=== PATIENT | male | born 1955 | race Two or more races ===

== ENCOUNTER 2020-03-10 09:59 | Outpatient (CLI) | payer MEDICARE, MEDICAID ==
[~2020-03-10 09:59] MED LIST: *INS REG SQ; ALBU18HF2 IH; ALLO100T PO; AMLO-212 PO; AMLO-213 PO; ASPI-1169 PO; ATOR40TA PO; BLOO-668 IN; BUME1TAB8 PO; CARV12.52 PO; CHOL10002 PO; CHOL100040 PO; CIPR500T5 PO; CLOP75TA15 PO; FENO145T21 PO; FERR325T24 PO; FOLI0.8T2 PO; FOLI1TAB16 PO; FURO40TA5 PO; HYDR-4075 PO; HYDR100T27 PO; INSU100V7 SQ; INSU100V9 SQ; INSU3INS6 SQ; ISOS30TA6 PO; LEVO50TA8 PO; LEVO75TA7 PO; METF-440 PO; METF-442 PO; METO2.5T7 PO; METO25TA20 PO; METO50TA16 PO; NITR0.4T48 SL; PANT40TA2 PO; RANO500T3 PO; SIMV-49 PO; SIMV40TA2 PO; SPIR25TA PO; TRAZ-257 PO
[2020-03-10] MEDS ORDERED: REGADENOSON 0.4 MG/5 ML DISP.SYRIN IVP ONE (10:30)
== END 2020-03-10 23:59 | disposition home or self-care (01) ==
LOC: RAD 09:59
PROVIDERS: ATTEND Internal Medicine Interventional Cardiology
DX: R07.9 Chest pain, unspecified (principal)
CPT/HCPCS: 78452; A9502; J2785

== ENCOUNTER 2020-03-27 05:06 | Inpatient (IN) | payer MEDICARE, OTHER ==
[~2020-03-27] VITALS: Ht 172.7 cm; Wt 105.7 kg
--- NOTE | 2020-03-27 05:11 | NUR ---
PT AAOX4. AMBULATORY USING WALKER. BIB BROTHER C/O RLQ ABD PAIN X1 DAY, BLOODY URINE. MISSED DIALYSIS YESTERDAY. PT STATED HE DRANK LAST NIGHT TO EASE THE PAIN. PT PLACED ON MONITOR AND PULSE OX. VSS. AWAITING MD FOR EVAL AND ORDERS.
--- NOTE | 2020-03-27 05:44 | NUR ---
BLOOD COLLECTED AND SENT TO LAB.
[2020-03-27 05:48] LABS: BILIRUBIN,URINE Negative (NEGATIVE); BLOOD, URINE Trace-intact Ery/uL (NEGATIVE); COLOR,URINE YELLOW (YELLOW); LEUKOCYTE ESTERASE ,URINE Negative (NEGATIVE); NITRITE, URINE Negative (NEGATIVE); PROTEIN,URINE Negative (NEGATIVE); UGLUCOSE Negative (NEGATIVE); UROBILINOGEN,URINE 0.2 EU/dL (0.2)
[2020-03-27 05:51] LABS: BASOPHILS # (AUTO) 0.1 /CMM (0.0-0.2); BASOPHILS % (AUTO) 0.9 % (0.0-2.0); EOSINOPHILS % (AUTO) 4.3 % (0.0-6.0); HEMATOCRIT 37 % (39-51); HEMOGLOBIN 12.4 g/dL (13.5-17.5); LYMPHOCYTES # (AUTO) 1.3 /CMM (0.8-4.8); MEAN CORPUSCULAR HGB CONC 34 g/dl (31.0-36.0); MEAN CORPUSCULAR VOLUME 95 fL (80-96); MONOCYTES # (AUTO) 0.3 /CMM (0.1-1.30); MONOCYTES % (AUTO) 4.7 % (2.0-12.0); NEUTROPHILS # (AUTO) 4.7 /CMM (1.8-8.9); NEUTROPHILS % (AUTO) 70.1 % (43.0-81.0); PLATELET COUNT (AUTO) 248 /CMM (150-450); RED BLOOD CELL COUNT(AUTO) 3.82 MIL/uL (4.5-6.0); WHITE BLOOD COUNT (AUTO) 6.7 K/uL (4.3-11.0)
[2020-03-27 05:56] LABS: CALCIUM, SERUM 8.5 mg/dL (8.5-10.1); CREATININE 3.5 mg/dL (0.6-1.3); POTASSIUM 4.8 mmol/L (3.5-5.1)
[2020-03-27 06:02] LABS: ALBUMIN 3.6 g/dL (3.4-5.0); BILIRUBIN,DIRECT 0.1 mg/dL (0.0-0.2); BILIRUBIN,TOTAL 0.3 mg/dL (0.2-1.0); TOTAL PROTEIN, SERUM 7.5 g/dL (6.4-8.2)
--- NOTE | 2020-03-27 06:15 | NUR ---
CALLED LAB REGARDING COVID SWAB.
--- NOTE | 2020-03-27 06:35 | NUR ---
covid swab collected and sent to the lab.
[2020-03-27 06:49] LABS: BACTERIA,URINE None seen /HPF (None Seen); CALCIUM OXALATE CRYSTALS,UR Moderate /HPF (None Seen); RBC,URINE 0-2 /HPF (0-2); SQUAMOUS EPITHELIAL CELL,UR Few /HPF (None Seen); WBC,URINE 0-2 /HPF (0-3)
[2020-03-27] MEDS ORDERED: ONDANSETRON HCL/PF 4 MG/2 ML VIAL IVP ONE (07:00)
[2020-03-27] MEDS ORDERED: MORPHINE SULFATE INJ 2 MG/ML DISP.SYRIN IV ONE (07:00)
--- NOTE | 2020-03-27 07:06 | NUR ---
PT AMBULATED TO THE RESTROOM USING WALKER.
[2020-03-27] MEDS ORDERED: ONDANSETRON HCL/PF 4 MG/2 ML VIAL ONE (07:16)
[2020-03-27] MEDS ORDERED: MORPHINE SULFATE INJ 4 MG/ML DISP.SYRIN ONE (07:17)
--- NOTE | 2020-03-27 07:43 | NUR ---
PAGED EPIC. DR. SOLER ENVIRONMENTAL TECH.
[2020-03-27 08:19] LABS: THYROID STIMULATING HORMONE 1.475 uIU/mL (0.358-3.74)
[2020-03-27] MEDS ORDERED: METO25TA6 PO (08:21)
[2020-03-27] MEDS ORDERED: METF-440 PO (08:21)
[2020-03-27] MEDS ORDERED: HYDR-4077 PO (08:21)
--- NOTE | 2020-03-27 11:17 | NUR ---
received bed assigment 324-1
--- NOTE | 2020-03-27 11:40 | NUR ---
report given to mansi salter rn at [facility]
[2020-03-27 11:53] LABS: MAGNESIUM 2.9 mg/dL (1.8-2.4)
[2020-03-27] MEDS ORDERED: DIATR MEGLU/DIATRIZOATE SODIUM 120 ML BOTTLE (GASTROGRAPHIN) ONE (11:57)
[2020-03-27 12:00] VITALS: BP 124/66
[2020-03-27] MEDS ORDERED: NITROGLYCERIN 0.4 MG/TAB BOTTLE SL PRN (12:00)
[2020-03-27] MEDS ORDERED: ALBUTEROL SULFATE INH 18 GM HFA.AER.AD IH PRN (12:00)
[2020-03-27] MEDS ORDERED: IV D5/ 0.9% NACL 1,000 ML IV PRN (12:00)
[2020-03-27] MEDS ORDERED: FUROSEMIDE 40 MG TABLET PO SCH (12:00)
--- NOTE | 2020-03-27 12:00 | NUR ---
RN NOTES PT AAOX4. AMBULATORY. NO SOB NO SIGNS OF PAIN OR DISCOMFORT VISIBLE OR REPORTED. PT ON ROOM AIR. CURRENTLY NPO EXPECT FOR MEDICATIONS, HAS IV IN THE RIGHT HAND. HAS AN AV SHUNT. CALL LIGHT WITHIN REACH. BED IN A LOCKED POSITION. ALL NEEDS MET.WILL CONTINUE TO MONITOR
--- NOTE | 2020-03-27 12:01 | NUR ---
pt transferred to [facility]
[2020-03-27] MEDS ORDERED: ALBUTEROL FS 2.5 MG/0.5 ML VIAL.NEB NEB PRN (12:30)
[2020-03-27] MEDS ORDERED: METFORMIN 500 MG TABLET PO SCH (13:00)
[2020-03-27] MEDS: hydrALAZINE HCL 50 MG TABLET PO SCH ×2 (13:00→17:30)
--- NOTE | 2020-03-27 13:00 | NUR ---
FOLDED CLOTH TAPERAEROBICS TEACHER NOTES ADMITTED PT FROM ER WITH C/O ABDOMINAL PAIN.PT ALERT AND ORIENTED X4.VERBALLY RESPONSIVE. NO SOB ON ROOM AIR.AMBULATES AD PRINCE.SKIN INTACT. WITH HERB AV SHUNT AND RT HAND HEPLOCK INTACT. MISSED HD YESTERDAY AND WILL HAVE HEMODIALYSIS TODAY.ON NPO EXCEPT MEDS.CALL LIGHT PLACEDWITHIN REACH.
--- NOTE | 2020-03-27 13:00 | NUR ---
RN NOTES HYDRALAZINE HELD PATIENT WILL HAVE DIALYSIS
[2020-03-27] MEDS ORDERED: LOPERAMIDE HCL (2 MG CAP) 2 MG CAPSULE PO PRN (15:00)
[2020-03-27] MEDS ORDERED: DEXTROSE 50%-WATER 50 ML DISP.SYRIN IV PRN (15:30)
[2020-03-27 16:00] VITALS: BP 119/56
--- NOTE | 2020-03-27 16:00 | NUR ---
VTE [address] YOVANNY GAO OF PT'S VTE SCORE OF 3 AND PLAVIX IS NOT CONSIDERED CHEMICAL PROPHYLAXIS. NNO AT THIS TIME
[2020-03-27] MEDS ORDERED: METOPROLOL TARTRATE 25 MG TABLET PO SCH (17:00)
[2020-03-27] MEDS ORDERED: INSULIN REGULAR, HUMAN 100 UNIT/ML 10 ML VIAL SQ SCH (17:00)
[2020-03-27] MEDS: CARVEDILOL 12.5 MG TABLET PO SCH (17:30)
[2020-03-27] MEDS: BLOOD SUGAR DIAGNOSTIC 1 EACH STRIP IN SCH ×2 (17:41→22:14)
[2020-03-27] MEDS: ATORVASTATIN 40 MG TABLET PO SCH (17:45)
[2020-03-27] MEDS: LOPERAMIDE HCL (2 MG CAP) 2 MG CAPSULE PO PRN (17:55)
--- NOTE | 2020-03-27 18:26 | NUR ---
RN NOTES PT AAOX4. AMBULATORY. NO SOB NO SIGNS OF PAIN OR DISCOMFORT VISIBLE OR REPORTED. PT ON ROOM AIR. CURRENTLY NPO EXCEPT FOR MEDICATIONS, HAS IV ON THE RIGHT HAND NO REDNESS WELLING OR PAIN AT SITE. CALL LIGHT WITHIN REACH. BED IN A LOCKED POSITION. ALL NEEDS MET.WILL CONTINUE TO MONITOR
--- NOTE | 2020-03-27 19:00 | NUR ---
weather algorithm scientist opening notes Received Pt from morning nurse. Pt is resting in bed comfortably. Pt is alert and orientedX4. Pt speaks [place] and able to make needs known. Respiration is normal in room air. No SOB. No S/S of distress noted. Tele monitor showed SR Hr at 68. IV sites at R hand is clean, intact and infusing well D5NS@ 50 ml/hr. Safety precautions is maintained. Bed at low position, brakes locked, side railsupX3, urinal at the bed side, and call light is within reach. Will continue to monitor.
--- NOTE | 2020-03-27 19:10 | NUR ---
RN notes Pt started dialysis with AURELIA Stephenson.
[2020-03-27 20:00] VITALS: BP 97/56
--- NOTE | 2020-03-27 21:50 | NUR ---
RN notes Pt is finished dialysis with AURELIA Stephenson. Output 1500 ml. Pt tolerated activity well.
[2020-03-27] MEDS: RANOLAZINE 500 MG TAB.ER.12H PO SCH (22:03)
[2020-03-27] MEDS: INSULIN REGULAR, HUMAN 100 UNIT/ML 3 ML VIAL SQ PRN (22:15)
[2020-03-28] VITALS: BP 96/47
--- NOTE | 2020-03-28 07:00 | NUR ---
criminal justice social worker closing notes Pt is resting in bed comfortably. Pt is alert and orientedX4. Pt speaks Mozambican and able to make needs known. Respiration is normal in room air. No SOB. No S/S of distress noted. VS is stable. Afebrile. Tele monitor showed Sinus carlos at 58. IV sites at R hand is clean, intact and infusing well D5NS@ 50 ml/hr. Safety precautions is maintained. Bed at low position, brakes locked, side railsupX3, urinal at the bed side, and call light is within reach. Will endorse to morning nurse for DENNIS.
[2020-03-28] MEDS: BLOOD SUGAR DIAGNOSTIC 1 EACH STRIP IN SCH ×4 (07:40→22:00)
--- NOTE | 2020-03-28 07:40 | NUR ---
RESTAURANT TEAM MEMBER OPENING NOTES Bedside endorsement done. Patient is resting in bed, awake and verbally responsive. Alert and oriented X4, Kazakh-speaking but understands Serbian. Breathing even and unlabored, tolearting room air. On tele monitoring, reading of SR, hr in the low 60's. IV line on R hand #20 intact and patent, IVF of D5NS @ 50 ml/hr, infusing well. Safety precautions in place: bed locked and on lowest position, side rails up X2, call light is within reach. Will continue to monitor.
[2020-03-28 08:00] VITALS: BP 120/58
[2020-03-28] MEDS: CARVEDILOL 12.5 MG TABLET PO SCH ×2 (09:00→17:12)
[2020-03-28] MEDS: CLOPIDOGREL BISULFATE 75 MG TABLET PO SCH (09:00)
[2020-03-28 11:42] LABS: BASOPHILS # (AUTO) 0.1 /CMM (0.0-0.2); BASOPHILS % (AUTO) 1.1 % (0.0-2.0); HEMATOCRIT 35 % (39-51); HEMOGLOBIN 11.8 g/dL (13.5-17.5); LYMPHOCYTES # (AUTO) 0.9 /CMM (0.8-4.8); LYMPHOCYTES % (AUTO) 14.3 % (20.0-44.0); MEAN CORPUSCULAR HGB CONC 34 g/dl (31.0-36.0); MEAN CORPUSCULAR VOLUME 95 fL (80-96); MONOCYTES # (AUTO) 0.4 /CMM (0.1-1.30); MONOCYTES % (AUTO) 6.2 % (2.0-12.0); NEUTROPHILS # (AUTO) 4.7 /CMM (1.8-8.9); NEUTROPHILS % (AUTO) 74.4 % (43.0-81.0); PLATELET COUNT (AUTO) 243 /CMM (150-450); WHITE BLOOD COUNT (AUTO) 6.3 K/uL (4.3-11.0)
[2020-03-28 12:34] LABS: CALCIUM, SERUM 7.9 mg/dL (8.5-10.1); CREATININE 4.2 mg/dL (0.6-1.3); MAGNESIUM 2.9 mg/dL (1.8-2.4); PHOSPHORUS 5.3 mg/dL (2.5-4.9); POTASSIUM 4.7 mmol/L (3.5-5.1)
[2020-03-28] MEDS: RANOLAZINE 500 MG TAB.ER.12H PO SCH ×2 (12:40→21:01)
[2020-03-28] MEDS: FENOFIBRATE NANOCRYS (145 MG) 145 MG TABLET PO SCH (12:40)
[2020-03-28] MEDS: ASPIRIN 81 MG TAB.CHEW PO SCH (12:40)
[2020-03-28] MEDS: CHOLECALCIFEROL 1,000 UNIT TABLET (VIT D3) PO SCH (12:40)
[2020-03-28] MEDS: FERROUS SULFATE (325 MG) 325 MG/TAB TABLET PO SCH (12:40)
[2020-03-28] MEDS: AMLODIPINE BESYLATE 10 MG TABLET PO SCH (12:41)
[2020-03-28] MEDS: SPIRONOLACTONE 25 MG TABLET PO SCH (12:41)
[2020-03-28] MEDS: LEVOTHYROXINE SODIUM 75 MCG TABLET PO SCH (12:41)
[2020-03-28] MEDS: PANTOPRAZOLE 40 MG TABLET.DR PO SCH (12:41)
[2020-03-28] MEDS: ALLOPURINOL 100 MG TABLET PO SCH (12:42)
[2020-03-28] MEDS: hydrALAZINE HCL 50 MG TABLET PO SCH ×3 (12:42→17:12)
[2020-03-28] MEDS: ISOSORBIDE MONONITRATE (30MG) 30 MG TAB.SR.24H PO SCH (12:43)
--- NOTE | 2020-03-28 13:00 | NUR ---
RN NOTES RECEIVED NEW ORDER FROM DR. PERALES TO START PATIENT ON CLEAR LIQUID AND ADVANCE TOLERATED. PATIENT GIVEN APPLE JUICE, WATER, AND JELLO, ABLE TO TOLERATE W/O COMPLAINT OF NAUSEA NOR VOMITING. WILL ADVANCE PATIENT TOLERATES.
[2020-03-28] MEDS: INSULIN REGULAR, HUMAN 100 UNIT/ML 3 ML VIAL SQ PRN ×2 (13:08→17:29)
[2020-03-28 16:00] VITALS: BP 118/43
--- NOTE | 2020-03-28 17:41 | NUR ---
RN NOTES PATIENT CURRENTLY ABLE TO TOLERATE SALTINE CRACKERS AT THIS TIME W/O COMPLAINT OF NAUSEA/VOMITING. NO SWALLOWING ISSUES NOTED. NO COMPLAINT OF ABDOMINAL PAIN.
[2020-03-28] MEDS: ATORVASTATIN 40 MG TABLET PO SCH (17:55)
--- NOTE | 2020-03-28 19:30 | NUR ---
BRIM STRETCHER CLOSING NOTES Patient is awake and verbally responsive. Alert and oriented X4, Syrian-speaking but understands Moldovan. Breathing even and unlabored, tolearting room air. On tele monitoring, reading of SR, hr in the 60's. IV line on R hand #20 intact and patent; patient does not want the ivf for now as he says he is okay with drinking fluids. Tolerating current diet and advancing as patient is able, no c/o nausea nor vomiting. Safety precautions maintained: bed locked and on lowest position, side rails up X2, call light is within reach. Endorsed to skin piler rn for kale.
[2020-03-28 20:00] VITALS: BP 149/73
[2020-03-28] MEDS: LOPERAMIDE HCL (2 MG CAP) 2 MG CAPSULE PO PRN (21:01)
--- NOTE | 2020-03-28 23:13 | NUR ---
BLOOD SUGAR [id number], NO INSULIN GIVEN.
[2020-03-29] MEDS: INSULIN REGULAR, HUMAN 100 UNIT/ML 3 ML VIAL SQ PRN (06:29)
[2020-03-29] MEDS: BLOOD SUGAR DIAGNOSTIC 1 EACH STRIP IN SCH ×2 (06:31→12:00)
--- NOTE | 2020-03-29 07:56 | NUR ---
RN OPENING NOTE Patient is resting in bed, A/O x4, showing no signs of acute distress or SOB, stable on RA. Patient is ambulatory with BRP. IV line in the the right hand #20g is clean and intact flushing well. Bed is in lowest position, side rails x2 in upright position, call light is within reach, fall safety and aspiration precautions enforced. Will continue with plan of care.
[2020-03-29 08:00] VITALS: BP 127/57
[2020-03-29] MEDS: ASPIRIN 81 MG TAB.CHEW PO SCH (08:49)
[2020-03-29] MEDS: AMLODIPINE BESYLATE 10 MG TABLET PO SCH (08:49)
[2020-03-29 08:50] VITALS: BP 127/57
[2020-03-29] MEDS: LEVOTHYROXINE SODIUM 75 MCG TABLET PO SCH (08:50)
[2020-03-29] MEDS: CARVEDILOL 12.5 MG TABLET PO SCH (08:50)
[2020-03-29] MEDS: RANOLAZINE 500 MG TAB.ER.12H PO SCH (08:50)
[2020-03-29] MEDS: FENOFIBRATE NANOCRYS (145 MG) 145 MG TABLET PO SCH (08:50)
[2020-03-29] MEDS: FERROUS SULFATE (325 MG) 325 MG/TAB TABLET PO SCH (08:50)
[2020-03-29] MEDS: ISOSORBIDE MONONITRATE (30MG) 30 MG TAB.SR.24H PO SCH (08:50)
[2020-03-29] MEDS: hydrALAZINE HCL 50 MG TABLET PO SCH (08:50)
[2020-03-29] MEDS: CHOLECALCIFEROL 1,000 UNIT TABLET (VIT D3) PO SCH (08:50)
[2020-03-29] MEDS: PANTOPRAZOLE 40 MG TABLET.DR PO SCH (08:55)
[2020-03-29] MEDS: ALLOPURINOL 100 MG TABLET PO SCH (08:55)
[2020-03-29] MEDS: CLOPIDOGREL BISULFATE 75 MG TABLET PO SCH (08:55)
[2020-03-29] MEDS: SPIRONOLACTONE 25 MG TABLET PO SCH (08:56)
[2020-03-29] MEDS ORDERED: APIXABAN 2.5 MG TABLET PO SCH (09:00)
--- NOTE | 2020-03-29 13:19 | NUR ---
TEST CARRIER NOTE Patient is medically cleared for discharge, showing no signs of acute distress or SOB, stable on RA. Patient refused skin assessment. IV line removed, ID band removed. DC instructions provided, patient verbalized understanding. All patient needs met, all due medications given. All belongings are with patient. Patent picked up by brother in private car en route to home. aware. stove tender aware.
== END 2020-03-29 14:00 | disposition home or self-care (01) | DRG 393 ==
LOC: ER 05:07 → TELE 11:27 → MED 03-28 11:19
PROVIDERS: ADMIT Internal Medicine Nephrology; ATTEND Internal Medicine Nephrology
PROC: 5A1D70Z Performance of Urinary Filtration, Intermittent, Less than 6 Hours Per Day (ICD-10-PCS; principal; 2020-03-27)
DX: K43.6 Other and unspecified ventral hernia with obstruction, without gangrene (principal); N18.6 End stage renal disease; I21.A1 Myocardial infarction type 2; I13.2 Hypertensive heart and chronic kidney disease with heart failure and with stage 5 chronic kidney disease, or end stage renal disease; I48.92 Unspecified atrial flutter; J90 Pleural effusion, not elsewhere classified; E66.01 Morbid (severe) obesity due to excess calories; E11.22 Type 2 diabetes mellitus with diabetic chronic kidney disease; I25.10 Atherosclerotic heart disease of native coronary artery without angina pectoris; I27.20 Pulmonary hypertension, unspecified; Z79.82 Long term (current) use of aspirin; F10.20 Alcohol dependence, uncomplicated; Z79.84 Long term (current) use of oral hypoglycemic drugs; Z68.35 Body mass index [BMI] 35.0-35.9, adult; I50.9 Heart failure, unspecified; Z79.4 Long term (current) use of insulin
CPT/HCPCS: 36415; 71045-TC; 74250-TC; 80048-TC; 80076-TC; 81001; 82140-TC; 82728-TC; 82962-TC; 83540-TC; 83690-TC; 83735-TC; 84100-TC; 84439-TC; 84443-TC; 84484-TC; 85025-TC; 85730-TC; 86706; 87081-TC; 87340; 90935-TC; 93307-TC; C9803; G0378; J1815; J2270; J2405; Q9963

== ENCOUNTER 2021-08-04 13:26 | Inpatient (IN) | payer MEDICARE, OTHER ==
[~2021-08-04] VITALS: Ht 170.2 cm; Wt 103.4 kg
[~2021-08-04 13:26] MED LIST changes: -*INS REG SQ; -AMLO-212 PO; -BLOO-668 IN; -BUME1TAB8 PO; -CHOL100040 PO; -CIPR500T5 PO; -FOLI0.8T2 PO; -FOLI1TAB16 PO; -HYDR-4075 PO; +HYDR-4077 PO; -HYDR100T27 PO; -INSU3INS6 SQ; -ISOS30TA6 PO; +ISOS30TA86 PO; -LEVO50TA8 PO; -METF-442 PO; -METO2.5T7 PO; -METO25TA20 PO; +METO25TA6 PO; -METO50TA16 PO; -SIMV-49 PO; -SIMV40TA2 PO
[2021-08-04] MEDS ORDERED: MIDODRINE HCL (5MG) 5 MG TABLET PO STA (13:42)
--- NOTE | 2021-08-04 13:42 | NUR ---
c/o dizziness, missed 2 dialysis. Ambulatory, AAOX4, not in distress- unlabored normal breathing. Placed on bed comfortably.
--- NOTE | 2021-08-04 13:45 | NUR ---
at bed side
--- NOTE | 2021-08-04 13:50 | NUR ---
BLOOD DRAWN AND SENT TO LAB
[2021-08-04] MEDS ORDERED: FUROSEMIDE 40 MG/4 ML VIAL IV ONE (14:00)
[2021-08-04] MEDS ORDERED: CALCIUM CHLORIDE 1,000 MG/10 ML DISP.SYRIN IV ONE (14:00)
[2021-08-04] MEDS ORDERED: SODIUM BICARBONATE SYR 50 MEQ/50 ML DISP.SYRIN IV ONE (14:00)
[2021-08-04 14:04] LABS: BASOPHILS # (AUTO) 0.1 K/uL (0.0-0.2); BASOPHILS % (AUTO) 0.9 % (0.0-2.0); EOSINOPHILS % (AUTO) 1.6 % (0.0-6.0); HEMATOCRIT 33 % (39-51); HEMOGLOBIN 10.9 g/dL (13.5-17.5); LYMPHOCYTES # (AUTO) 0.6 K/uL (0.8-4.8); LYMPHOCYTES % (AUTO) 8.6 % (20.0-44.0); MEAN CORPUSCULAR HGB CONC 33 g/dl (31.0-36.0); MEAN CORPUSCULAR VOLUME 96 fL (80-96); MONOCYTES # (AUTO) 0.4 K/uL (0.1-1.30); MONOCYTES % (AUTO) 5.4 % (2.0-12.0); NEUTROPHILS # (AUTO) 5.6 K/uL (1.8-8.9); NEUTROPHILS % (AUTO) 83.5 % (43.0-81.0); PLATELET COUNT (AUTO) 258 K/uL (150-450); RED BLOOD CELL COUNT(AUTO) 3.39 MIL/uL (4.5-6.0); WHITE BLOOD COUNT (AUTO) 6.7 K/uL (4.3-11.0)
[2021-08-04] MEDS ORDERED: FUROSEMIDE 20 MG/2 ML VIAL ONE (14:06)
[2021-08-04] MEDS ORDERED: MIDODRINE HCL (5MG) 5 MG TABLET ONE ×2 (14:07→14:08)
[2021-08-04] MEDS ORDERED: SODIUM BICARBONATE SYR 50 MEQ/50 ML DISP.SYRIN ONE (14:07)
[2021-08-04] MEDS ORDERED: CALCIUM CHLORIDE 1,000 MG/10 ML DISP.SYRIN ONE (14:07)
[2021-08-04 14:25] LABS: CALCIUM, SERUM 8.4 mg/dL (8.5-10.1); CREATININE 5.2 mg/dL (0.6-1.3); POTASSIUM 4.9 mmol/L (3.5-5.1)
[2021-08-04 14:31] LABS: ALBUMIN 3.7 g/dL (3.4-5.0); BILIRUBIN,DIRECT 0.1 mg/dL (0.0-0.2); BILIRUBIN,TOTAL 0.4 mg/dL (0.2-1.0); TOTAL PROTEIN, SERUM 7.5 g/dL (6.4-8.2)
--- NOTE | 2021-08-04 14:35 | NUR ---
MOVE SHEET SUBMITTED AND CALLED FOR TELE BED.
[2021-08-04] MEDS ORDERED: CALC667C6 PO (14:39)
[2021-08-04] MEDS ORDERED: SPIR100T5 PO (14:39)
[2021-08-04] MEDS ORDERED: ICOS1CAP PO (14:39)
[2021-08-04] MEDS ORDERED: NUT.237L67 PO (14:39)
[2021-08-04] MEDS ORDERED: APIX2.5T PO (14:39)
[2021-08-04] MEDS ORDERED: MULT-981 PO (14:39)
[2021-08-04] MEDS ORDERED: ATOR40TA PO (14:56)
[2021-08-04] MEDS ORDERED: ASPI-1169 PO (14:56)
[2021-08-04] MEDS ORDERED: FURO40TA5 PO (14:56)
[2021-08-04] MEDS ORDERED: INSU100V9 SQ (14:56)
[2021-08-04] MEDS ORDERED: CARV12.52 PO (14:56)
[2021-08-04] MEDS ORDERED: FENO145T21 PO (14:56)
--- NOTE | 2021-08-04 14:58 | NUR ---
SWAB FOR COVID SENT TO LAB
[2021-08-04] MEDS ORDERED: MAGN400T26 PO (14:59)
[2021-08-04] MEDS ORDERED: CALC500T52 PO (14:59)
[2021-08-04] MEDS ORDERED: ZINC50TA69 PO (14:59)
--- NOTE | 2021-08-04 15:20 | NUR ---
IMFORMED DR HORTON THAT PATIENT CAN NOT PRODUCE URINE SAMPLE
--- NOTE | 2021-08-04 15:57 | NUR ---
BED ASSIGNED 315-1
[2021-08-04 16:10] LABS: BILIRUBIN,URINE NEGATIVE (NEGATIVE); COLOR,URINE YELLOW (YELLOW); LEUKOCYTE ESTERASE ,URINE NEGATIVE (NEGATIVE); NITRITE, URINE NEGATIVE (NEGATIVE); PH,URINE 7.5 (5.0-8.0); PROTEIN,URINE NEGATIVE (NEGATIVE); UGLUCOSE NEGATIVE (NEGATIVE); UROBILINOGEN,URINE 0.2 EU/dL (0.2)
--- NOTE | 2021-08-04 16:30 | NUR ---
REPORT GIVEN TO AURELIA MORRISSEY
--- NOTE | 2021-08-04 16:35 | NUR ---
Patient arrived to unit via gurney at 1630pm from ER, stable condition. Patient AO X 4, able to make needs known, can follow simple commands, no apparent distress noted, breathing even and unlabored. Admitting hospitalist made aware of the patient's arrival. Patient admitting diagnosis dizziness, fluid overload. Patient's vital signs within normal limits, no complaints of facial numbness or weakness, no extremity numbness or weakness at this time. Skin intact, warm to touch, no pallor or cyanosis noted. Patient oriented with use of call lights, use of bed control, use of telephone and tv control, also introduces NIGHT MONITOR and RN assigned for today, verbalized understanding and gratitude. All belongings written in the inventory list. All needs attended, kept clean and dry, call light left within reach, safety precautions in place, brakes locked, side rails up X 2, will monitor closely for any changes.
--- NOTE | 2021-08-04 16:45 | NUR ---
[facility] CALLED APPLE THINNER PAGED.
[2021-08-04 17:00] VITALS: BP 155/73
--- NOTE | 2021-08-04 17:55 | NUR ---
RN CLOSING NOTES Patient lying in bed, no shortness of breath, respirations even and unlabored, no apparent distress noted, no dizziness, no palpitations, no chest pain, no nausea, no vomiting. Patient has an order for hemodialysis today, no s/s of fluid overload, no shortness of breath, no dizziness, no palpitations. Dialysis site on left upper arm fistula with dry and intact dressing, no bleeding, no unusual drainage, no unusual smell noted, no redness. All due medications given per MD order, tolerating well. Patient has IV site on his right hand, intact, patent and flushing well, no swelling, no redness, no c/o pain or discomfort at site. Patient had episodes of bradycardia with pause during shift, hospitalist made aware with new orders for STAT EKG, STAT magnesium levels, STAT troponin levels, cardio consult. Patient stated he has episodes of dizziness still but lesser after he took the Meclizine, patient denies having palpitation, no chest pain. All needs attended, kept clean and dry, call light left within reach, safety precautions in place, frequent visual check rendered, brakes locked, side rails up X 2, will endorse to next shift for continuity of care. Addendum: 08/04/21 at 2009 by YUNI IRVING RN Wrong documentation
[2021-08-04] MEDS ORDERED: ONDANSETRON HCL/PF 4 MG/2 ML VIAL IVP PRN (18:00)
[2021-08-04] MEDS ORDERED: ACETAMINOPHEN 325 MG TABLET PO PRN (18:00)
[2021-08-04] MEDS ORDERED: Z GUARD REMEDY 4 OZ OINT TP PRN (18:00)
[2021-08-04] MEDS ORDERED: MECLIZINE HCL 25 MG TABLET PO PRN (18:00)
[2021-08-04] MEDS ORDERED: DEXTROSE 50%-WATER 50 ML DISP.SYRIN IV PRN (18:00)
[2021-08-04] MEDS ORDERED: APIXABAN 2.5 MG TABLET PO SCH (18:00)
[2021-08-04] MEDS ORDERED: ALBUTEROL FS 2.5 MG/0.5 ML VIAL.NEB NEB PRN (18:00)
--- NOTE | 2021-08-04 18:00 | NUR ---
Patient has an order for hemodialysis consent for the procedure obtained from patient, verbalized understanding of the procedure, verbalized understanding and gratitude. Consents signed by patient and are filed in patients chart.
[2021-08-04] MEDS: ATORVASTATIN 40 MG TABLET PO SCH (18:13)
[2021-08-04] MEDS: CALCIUM ACETATE 667 MG CAP/TAB PO SCH (18:13)
--- NOTE | 2021-08-04 19:25 | NUR ---
WINE BOTTLE INSPECTOR OPENING NOTES RECEIVED PATIENT LAYING AWAKE IN BED. A/O X4. PATIENT WITH REGULAR AND UNLABORED BREATHING ON ROOM AIR, TOLERATED WELL. NO SIGNS AND SYMPTOMS OF DISTRESS NOTED AT THIS TIME. NO COMPLAINS OF PAIN OR DISCOMFORT NOTED AT THIS TIME. PATIENT IS ON TELE MONITOR READING SB WITH FIRST DEGREE AV BLOCK @ 58 BPM. IV ACCESS R HAND G #20 SL. IV ACCESS PATENT AND INTACT. L ARM AV SHUNT PATENT AND INTACT. SAFETY PRECAUTIONS ENFORCED WITH BED LOCKED AND AT LOWEST POSITION. SIDE RAILS UP X2. CALL LIGHT WITHIN REACH AT ALL TIMES. WILL CONTINUE TO MONITOR PATIENT.
--- NOTE | 2021-08-04 19:30 | NUR ---
EKG results relayed to hospitalist and waiting for any orders, incoming shift made aware, will follow up.
--- NOTE | 2021-08-04 19:57 | NUR ---
Patient arrived to unit via gurney at 1630pm from ER, stable condition. Patient AO X 4, able to make needs known, can follow simple commands, no apparent distress noted, breathing even and unlabored. Admitting hospitalist made aware of the patient's arrival. Patient admitting diagnosis dizziness, fluid overload. Patient's vital signs within normal limits, no complaints of facial numbness or weakness, no extremity numbness or weakness at this time. Skin intact, warm to touch, no pallor or cyanosis noted. Patient oriented with use of call lights, use of bed control, use of telephone and tv control, also introduces PRINTING AND STAMPING SUPERVISOR and RN assigned for today, verbalized understanding and gratitude. All belongings written in the inventory list. All needs attended, kept clean and dry, call light left within reach, safety precautions in place, brakes locked, side rails up X 2, will monitor closely for any changes. Addendum: 08/04/21 at 2009 by YUNI IRVING RN Wrong documentation
[2021-08-04 22:30] VITALS: BP 147/78
[2021-08-04] MEDS: BLOOD SUGAR DIAGNOSTIC 1 EACH STRIP IN SCH (22:42)
--- NOTE | 2021-08-04 23:45 | NUR ---
SEISMIC PROSPECTING SUPERVISOR NOTES LAB CALLED WITH CRITICAL VALUE OF HIGH SENS TROPONIN I OF 175. HOSPITALIST MADE AWARE ORDERED ANOTHER TROPONIN TEST AT 0100. ORDER CARRIED OUT. WILL CONTINUE TO MONITOR PATIENT.
[2021-08-05] VITALS: BP 146/63
--- NOTE | 2021-08-05 02:30 | NUR ---
BINDER ROLLER NOTES LAB CALLED WITH CRITICAL VALUE OF HIGH SENS TROPONIN I OF 181. HOSPITALIST MADE AWARE. NO NEW ORDERS GIVEN. WILL CONTINUE TO MONITOR PATIENT
[2021-08-05 04:23] VITALS: BP 124/55
[2021-08-05 06:11] LABS: BASOPHILS % (AUTO) 0.8 % (0.0-2.0); EOSINOPHILS % (AUTO) 3.8 % (0.0-6.0); HEMATOCRIT 33 % (39-51); HEMOGLOBIN 11.1 g/dL (13.5-17.5); LYMPHOCYTES % (AUTO) 19.5 % (20.0-44.0); MEAN CORPUSCULAR HGB CONC 34 g/dl (31.0-36.0); MEAN CORPUSCULAR VOLUME 96 fL (80-96); MONOCYTES # (AUTO) 0.4 K/uL (0.1-1.30); MONOCYTES % (AUTO) 8.5 % (2.0-12.0); NEUTROPHILS # (AUTO) 3.4 K/uL (1.8-8.9); NEUTROPHILS % (AUTO) 67.4 % (43.0-81.0); PLATELET COUNT (AUTO) 244 K/uL (150-450); RED BLOOD CELL COUNT(AUTO) 3.42 MIL/uL (4.5-6.0); WHITE BLOOD COUNT (AUTO) 5.1 K/uL (4.3-11.0)
[2021-08-05 06:19] LABS: CALCIUM, SERUM 9.9 mg/dL (8.5-10.1); CREATININE 3.7 mg/dL (0.6-1.3); MAGNESIUM 2.5 mg/dL (1.8-2.4); POTASSIUM 4.6 mmol/L (3.5-5.1)
[2021-08-05] MEDS: BLOOD SUGAR DIAGNOSTIC 1 EACH STRIP IN SCH ×4 (06:59→21:21)
--- NOTE | 2021-08-05 07:01 | NUR ---
SHOT MAN CLOSING NOTES PATIENT STILL LAYING AWAKE IN BED. A/O X4. PATIENT WITH REGULAR AND UNLABORED BREATHING ON ROOM AIR, TOLERATED WELL. NO SIGNS AND SYMPTOMS OF DISTRESS NOTED AT THIS TIME. NO COMPLAINS OF PAIN OR DISCOMFORT NOTED AT THIS TIME. PATIENT IS ON TELE MONITOR READING SB WITH FIRST DEGREE AV BLOCK @ 58 BPM. IV ACCESS R HAND G #20 SL. IV ACCESS PATENT AND INTACT. L ARM AV SHUNT PATENT AND INTACT. SAFETY PRECAUTIONS ENFORCED WITH BED LOCKED AND AT LOWEST POSITION. SIDE RAILS UP X2. CALL LIGHT WITHIN REACH AT ALL TIMES. WILL ENDORSE CONTINUITY OF CARE TO DAY SHIFT NURSE.
--- NOTE | 2021-08-05 07:20 | NUR ---
MS RN OPENING NOTES PATIENT LYING COMFORTABLY IN BED, HEAD OF BED ELEVATED, ALERT ORIENTED X 4. NO ACUTE DISTRESS NOTED. BREATHING UNLABORED. IV ACCESS PATENT AND INTACT, NO REDNESS NO SWELLING NOTED, WITH LEFT ARM HD DIALYSIS ACCESS. SAFETY MEASURES IN PLACE. CALL LIGHT WITHIN REACH. WILL CONTINUE TO MONITOR ACCORDINGLY
[2021-08-05] MEDS: LEVOTHYROXINE SODIUM 75 MCG TABLET PO SCH (08:00)
[2021-08-05] MEDS: CHOLECALCIFEROL 1,000 UNIT TABLET (VIT D3) PO SCH (08:25)
[2021-08-05] MEDS: CALCIUM ACETATE 667 MG CAP/TAB PO SCH ×3 (08:25→18:07)
[2021-08-05] MEDS: ASPIRIN 81 MG TAB.CHEW PO SCH (08:25)
[2021-08-05] MEDS: ZINC SULFATE 220 MG CAPSULE PO SCH (08:25)
[2021-08-05] MEDS: CALCIUM CARBONATE (1250) 500 MG TABLET PO SCH (08:25)
[2021-08-05] MEDS ORDERED: CARVEDILOL 12.5 MG TABLET PO SCH (09:00)
[2021-08-05] MEDS ORDERED: FENOFIBRATE NANOCRYS (145 MG) 145 MG TABLET PO SCH (09:00)
[2021-08-05] MEDS ORDERED: SPIRONOLACTONE 25 MG TABLET PO SCH ×2 (09:00)
[2021-08-05] MEDS ORDERED: Medication Not On Formulary EA (Icosapent Ethyl (Vascepa) 2 GM) PO SCH (09:00)
[2021-08-05] MEDS: INSULIN REGULAR, HUMAN 100 UNIT/ML 3 ML VIAL SQ PRN ×3 (12:08→21:21)
[2021-08-05] MEDS: ATORVASTATIN 40 MG TABLET PO SCH (18:07)
--- NOTE | 2021-08-05 18:20 | NUR ---
CO FOUNDER AND CEO NOTE SPOKE WITH [facility] RN JUANI AND ENDORSED PATIENT FOR SURGERY TOMORROW. THEY WOULD JUST NEED UPDATE TOMORROW, PRIOR TO DISCHARGE. WILL ENDORSE ACCORDINGLY.
--- NOTE | 2021-08-05 18:58 | NUR ---
MS RN OPENING NOTES PATIENT IN BED ALERT ORIENTED X 4, NO ACUTE DISTRESS NOTED. BREATHING UNLABORED. IV ACCESS PATENT AND INTACT, NO REDNESS NO SWELLING NOTED, WITH LEFT ARM HD DIALYSIS ACCESS.HAD HAD DIALYSIS TODAY, 2 LITERS OUT, VITAL SIGNS STABLE. SAFETY MEASURES IN PLACE. CALL LIGHT WITHIN REACH. WILL CONTINUE TO MONITOR ACCORDINGLY NEEDS ATTENDED AND ANTICIPATED. SAFETY MEASURES IN PLACE. CALL LIGHT WITHIN REACH. WILL ENDORSE TO NIGHT NURSE FOR CONTINUITY OF CARE
--- NOTE | 2021-08-05 19:20 | NUR ---
TELE/RN NOTE PT AWAKE IN BED, A/OX4, ABLE TO MAKE NEEDS KNOWN. RESPIRATIONS EVEN/UNLABORED. ON ROOM AIR, O2 SAT 99%. IV SITE: R-HAND #20G INTACT/PATENT/FLUSHES WELL. L-UPPER ARM AV SHUNT WITH GOOD BRUIT/THRILL. ON TELE MONITOR, CURRENTLY READING SR, HR60, WITH 1ST DEGREE AV BLOCK; WITH EPISODES OF MARTHA 50'S WITH PAUSES. PT AWARE OF PLANNED PACEMAKER PROCEDURE @[facility] TOMORROW. UNDERSTANDS AND WILL OBS[facility]E N[facility]. PT IN NO ACUTE DISTRESS. SAFETY MEASURES IN PLACE. WILL CONT TO MONITOR.
[2021-08-05 20:00] VITALS: BP 129/66
[2021-08-06] VITALS: BP 117/56
[2021-08-06] MEDS: BLOOD SUGAR DIAGNOSTIC 1 EACH STRIP IN SCH ×2 (06:14→12:30)
[2021-08-06] MEDS: INSULIN REGULAR, HUMAN 100 UNIT/ML 3 ML VIAL SQ PRN (06:15)
--- NOTE | 2021-08-06 07:04 | NUR ---
RN NOTE PT AWAKE IN BED, A/OX4, ABLE TO MAKE NEEDS KNOWN. HE DENIES PAIN, DENIES SOB. PT HAS BEEN NPO SINCE MIDNIGHT. NO ACUTE DISTRESS NOTED. ALL NEEDS ATTENDED TO.
[2021-08-06] MEDS: LEVOTHYROXINE SODIUM 75 MCG TABLET PO SCH (07:30)
--- NOTE | 2021-08-06 07:30 | NUR ---
LOG CUTTER OPENING NOTES RECEIVED PATIENT AWAKE ON BED AND A/O X4 WITH FORGETFULNESS. ON ROOM AIR TOLERATING WELL. NO SOB NOTED. NOT IN DISTRESS. WITH NO COMPLAINTS OF PAIN OR DISCOMFORT AT THIS TIME. WITH IV ACCESS AT RIGHT HAND G20 SALINE LOCKED, PATENT AND INTACT. ON TELE MONITOR CURRENTLY READING SINUS BRADYCARDIA AT 58BPM WITH 1ST DEGREE AV BLOCK WITH 3 REGULARLY 3 SEC PAUSES EVERY 4-5 MINUTES. FOR TRANSFER TO [facility] FOR PACEMAKER INSERTION. SAFETY MEASURES IN PLACED. CALL LIGHT WITHIN REACH. BED ON LOWEST LOCKED POSITION, SIDE RAILS UP X2. WILL CONTINUE TO MONITOR.
[2021-08-06] MEDS: CALCIUM ACETATE 667 MG CAP/TAB PO SCH (08:00)
[2021-08-06 08:20] VITALS: BP 110/62
[2021-08-06] MEDS: CALCIUM CARBONATE (1250) 500 MG TABLET PO SCH (08:48)
[2021-08-06] MEDS: ASPIRIN 81 MG TAB.CHEW PO SCH (08:48)
[2021-08-06] MEDS: ZINC SULFATE 220 MG CAPSULE PO SCH (08:49)
[2021-08-06] MEDS: CHOLECALCIFEROL 1,000 UNIT TABLET (VIT D3) PO SCH (08:49)
[2021-08-06 09:46] LABS: BASOPHILS % (AUTO) 0.8 % (0.0-2.0); EOSINOPHILS % (AUTO) 5.1 % (0.0-6.0); HEMATOCRIT 36 % (39-51); HEMOGLOBIN 11.6 g/dL (13.5-17.5); LYMPHOCYTES # (AUTO) 0.8 K/uL (0.8-4.8); LYMPHOCYTES % (AUTO) 15.9 % (20.0-44.0); MEAN CORPUSCULAR HGB CONC 33 g/dl (31.0-36.0); MEAN CORPUSCULAR VOLUME 97 fL (80-96); MONOCYTES # (AUTO) 0.5 K/uL (0.1-1.30); MONOCYTES % (AUTO) 8.8 % (2.0-12.0); NEUTROPHILS # (AUTO) 3.7 K/uL (1.8-8.9); NEUTROPHILS % (AUTO) 69.4 % (43.0-81.0); PLATELET COUNT (AUTO) 212 K/uL (150-450); RED BLOOD CELL COUNT(AUTO) 3.67 MIL/uL (4.5-6.0); WHITE BLOOD COUNT (AUTO) 5.3 K/uL (4.3-11.0)
[2021-08-06 09:55] LABS: MAGNESIUM 2.3 mg/dL (1.8-2.4)
[2021-08-06 09:56] LABS: CALCIUM, SERUM 8.6 mg/dL (8.5-10.1); POTASSIUM 4.7 mmol/L (3.5-5.1)
[2021-08-06 12:00] VITALS: BP 110/50
--- NOTE | 2021-08-06 12:25 | NUR ---
DYNAMITERCORK PAINTER AND GRADER NOTES PATIENT WAS PICKED UP BY AMBULANCE PERSONNEL FOR TRANSFER TO [facility] FOR PACEMAKER INSERTION. CALLED [facility] AND SPOKE TO YU AT [phone] AND GAVE REPORT. DISCHARGE AND TRANSFER PAPERS AND INSTRUCTIONS WERE HANDED TO AMBULANCE PERSONNEL.
== END 2021-08-06 12:25 | disposition short-term general hospital (02) | DRG 640 ==
LOC: ER 13:31 → TELE 16:05
PROVIDERS: ADMIT Nurse Practitioner Family; ATTEND Nurse Practitioner Family
PROC: 5A1D70Z Performance of Urinary Filtration, Intermittent, Less than 6 Hours Per Day (ICD-10-PCS; principal; 2021-08-04)
DX: E87.70 Fluid overload, unspecified (principal); N18.6 End stage renal disease; I13.2 Hypertensive heart and chronic kidney disease with heart failure and with stage 5 chronic kidney disease, or end stage renal disease; I48.92 Unspecified atrial flutter; J90 Pleural effusion, not elsewhere classified; J98.11 Atelectasis; H81.10 Benign paroxysmal vertigo, unspecified ear; I50.9 Heart failure, unspecified; K74.60 Unspecified cirrhosis of liver; E11.22 Type 2 diabetes mellitus with diabetic chronic kidney disease; Z79.4 Long term (current) use of insulin; Z79.82 Long term (current) use of aspirin; Z79.01 Long term (current) use of anticoagulants; Z79.51 Long term (current) use of inhaled steroids; Z79.899 Other long term (current) drug therapy; Z98.890 Other specified postprocedural states; Z59.00 Homelessness unspecified; K43.9 Ventral hernia without obstruction or gangrene; Z99.2 Dependence on renal dialysis; D64.9 Anemia, unspecified; I25.2 Old myocardial infarction; Z66 Do not resuscitate; E87.5 Hyperkalemia
CPT/HCPCS: 36415; 71045-TC; 80048-TC; 80076-TC; 82962-TC; 83605-TC; 83735-TC; 84100-TC; 84443-TC; 84484-TC; 85025-TC; 85610-TC; 87081-TC; 90935-TC; C9803; G0378; J1815; J1940; J3490; J8597

== ENCOUNTER 2022-07-11 13:08 | Inpatient (IN) | payer MEDICARE, OTHER ==
[~2022-07-11] VITALS: Ht 172.7 cm; Wt 84.1 kg
[~2022-07-11 13:08] MED LIST changes: -ALLO100T PO; -AMLO-213 PO; +CALC500T52 PO; +CALC667C6 PO; -CLOP75TA15 PO; -FERR325T24 PO; -HYDR-4077 PO; +ICOS1CAP PO; -ISOS30TA86 PO; +MAGN400T26 PO; -METF-440 PO; -METO25TA6 PO; +MULT-981 PO; +NUT.237L67 PO; -PANT40TA2 PO; -RANO500T3 PO; +SPIR100T5 PO; -SPIR25TA PO; -TRAZ-257 PO; +ZINC50TA69 PO
--- NOTE | 2022-07-11 13:15 | NUR ---
CALLED PT FOR TRIAGE, NO RESPONSE
--- NOTE | 2022-07-11 13:45 | NUR ---
BIBMED TRANSPORTER CC PAIN HIPS LEFT THIS MORNING AFTER FALLING FROM HIS WALKER. PT IS IN PAIN 10/ AMBULATORY NOT IN RESPIRATORY DISTRESS CONSCIOUS AND COHERENT MD MADE AWARE NURSING CARE AND PLANS CONTNUED
--- NOTE | 2022-07-11 13:48 | NUR ---
TECH AT BEDSIDE FOR EKG
--- NOTE | 2022-07-11 13:50 | NUR ---
POLYSOM TECH AT BED DRAWING BLOOD
[2022-07-11] MEDS ORDERED: ACYCLOVIR IV 500 MG in IV D5W 100 ML IV SCH (14:00)
[2022-07-11] MEDS ORDERED: TRIFLURIDINE LEFTEYE SCH (14:00)
[2022-07-11] MEDS ORDERED: ACYCLOVIR IV ONE (14:00)
[2022-07-11] MEDS ORDERED: D5W IV ONE (14:00)
--- NOTE | 2022-07-11 14:03 | NUR ---
PT HOOKED TO BP AND O2 SAT MONITOR
[2022-07-11 14:15] LABS: BASOPHILS # (AUTO) 0.1 K/uL (0.0-0.2); BASOPHILS % (AUTO) 1.3 % (0.0-2.0); EOSINOPHILS % (AUTO) 0.8 % (0.0-6.0); HEMATOCRIT 40 % (39-51); LYMPHOCYTES % (AUTO) 13.8 % (20.0-44.0); MEAN CORPUSCULAR HGB CONC 33 g/dl (31.0-36.0); MEAN CORPUSCULAR VOLUME 97 fL (80-96); MONOCYTES # (AUTO) 0.8 K/uL (0.1-1.30); MONOCYTES % (AUTO) 11.6 % (2.0-12.0); NEUTROPHILS # (AUTO) 5.1 K/uL (1.8-8.9); NEUTROPHILS % (AUTO) 72.5 % (43.0-81.0); PLATELET COUNT (AUTO) 251 K/uL (150-450); RED BLOOD CELL COUNT(AUTO) 4.08 MIL/uL (4.5-6.0); WHITE BLOOD COUNT (AUTO) 7.1 K/uL (4.3-11.0)
--- NOTE | 2022-07-11 14:18 | NUR ---
COVID SWAB COLLECTED AND SENT TO LAB
[2022-07-11] MEDS ORDERED: ACYCLOVIR IV 500 MG VIAL IV ONE (14:19)
[2022-07-11 14:37] LABS: ALANINE AMINOTRANSFERASE 11 U/L (12-78); ALBUMIN 3.4 g/dL (3.4-5.0); ALKALINE PHOSPHATASE 88 U/L (46-116); ASPARTATE AMINOTRANSFERASE 10 U/L (15-37); BILIRUBIN,DIRECT 0.2 mg/dL (0.0-0.2); BILIRUBIN,TOTAL 0.5 mg/dL (0.2-1.0); CARBON DIOXIDE 20 mmol/L (21-32); CHLORIDE 94 mmol/L (98-107); GLUCOSE 133 mg/dL (74-106); POTASSIUM 5.1 mmol/L (3.5-5.1); SODIUM SERUM 128 mmol/L (136-145); TOTAL PROTEIN, SERUM 7.3 g/dL (6.4-8.2); UREA NITROGEN, BLOOD 74 mg/dL (7-18)
[2022-07-11 14:40] LABS: CREATININE 11.3 mg/dL (0.6-1.3)
[2022-07-11] MEDS ORDERED: ASPIRIN 325 MG TABLET PO ONE (15:00)
[2022-07-11] MEDS ORDERED: ASPIRIN 325 MG TABLET ONE (15:02)
--- NOTE | 2022-07-11 15:30 | NUR ---
called pharmacy for viroptic. Was told they do not carry. notified
--- NOTE | 2022-07-11 16:11 | NUR ---
PT IV LINE WITH MEDS REMOVED AT HAND LEFT 20G
--- NOTE | 2022-07-11 16:25 | NUR ---
BED GIVEN 308-1
--- NOTE | 2022-07-11 16:48 | NUR ---
REPORT GIVEN TO AURELIA HYDE FOR CONTINUATION OF CARE
--- NOTE | 2022-07-11 17:16 | NUR ---
PATIENT TRANSFERRED TO GIVEN BED
--- NOTE | 2022-07-11 17:20 | NUR ---
OVERHEAD CLEANER MAINTAINERCOMMUNICATIONS ASSISTANT NOTE PT TRANSPORTED TO UNIT AT THIS TIME FROM ER VIA GURNEY. PT ADMITTED TO TELE FOR ADMITTING DX ALOC. PT A/OX3 AND ABLE TO MAKE NEEDS KNOWN. PT STABLE ON RA, BREATHING EVEN AND NON LABORED. NO SOB OR S/S OF RESPIRATORY DISTRESS NOTED. PLACED EXTERNAL TRANSFER KNITTER ON PATIENT. READING SR @72BPM WITH FIRST DEGREE WITH V-PACING. IV ACCESS L HAND #20G, INTACT AND PATENT, AND RCW HD ACCESS. NOTED WITH LEFT EYE HEMATOMA AND ABRASIONS ABOVE IT, PICTURES TAKEN, RECORDED IN CHART. VS TAKEN, STABLE AND RECORDED. ORIENTED PT TO UNIT, STAFF, AND ROOM. PT BELONGINGS ACCOUNTED FOR AND BELONGINGS LIST SIGNED. FALL AND SAFETY PRECAUTIONS IN PLACE. BED IN LOWEST LOCKED POSITION, HOB ELEVATED, SIDE RAILS UP X3, AND CALL LIGHT AND TABLE WITHIN REACH. ALL NEEDS MET AT THIS TIME.
[2022-07-11] MEDS ORDERED: ONDANSETRON HCL/PF 4 MG/2 ML VIAL IVP PRN (17:30)
[2022-07-11] MEDS ORDERED: MAGNESIUM HYDROXIDE 30 ML UDC PO PRN (17:30)
[2022-07-11] MEDS ORDERED: DEXTROSE 50%-WATER 50 ML DISP.SYRIN IV PRN (17:30)
[2022-07-11] MEDS ORDERED: NITROGLYCERIN 0.4 MG/TAB BOTTLE SL PRN (17:30)
[2022-07-11] MEDS ORDERED: Z GUARD REMEDY 4 OZ OINT TP PRN (17:30)
[2022-07-11] MEDS ORDERED: MAG HYDROX/AL HYDROX/SIMETH 30 ML UDC PO PRN (17:30)
[2022-07-11] MEDS: BLOOD SUGAR DIAGNOSTIC 1 EACH STRIP VI SCH ×2 (17:41→22:26)
[2022-07-11] MEDS: CALCIUM ACETATE 667 MG CAP/TAB PO SCH (17:54)
[2022-07-11] MEDS: ATORVASTATIN 40 MG TABLET PO SCH (17:54)
[2022-07-11 18:00] VITALS: BP 107/55
--- NOTE | 2022-07-11 18:45 | NUR ---
SOLE EDGE INKER MACHINE CLOSING NOTE PT AWAKE IN BED, A/OX3 AND ABLE TO MAKE NEEDS KNOWN. DIALYSIS NURSE BY BEDSIDE. PT STABLE ON RA, BREATHING EVEN AND NON LABORED. NO SOB OR S/S OF RESPIRATORY DISTRESS NOTED. WITH EXTERNAL DATA WAREHOUSING ARCHITECT READING SR @74 BPM WITH FIRST DEGREE WITH V-PACING. IV ACCESS L HAND #20G, INTACT AND PATENT,SL , AND RCW HD ACCESS. NOTED WITH LEFT EYE HEMATOMA AND ABRASIONS ABOVE IT. ALL ORDERS CARRIED OUT. SAFETY PRECAUTIONS IN PLACE AT ALL TIMES. BED IN LOWEST LOCKED POSITION, HOB ELEVATED, SIDE RAILS UP X3, AND CALL LIGHT AND TABLE WITHIN REACH. ALL NEEDS MET AT THIS TIME AND WILL ENDORSE TO ONCOMING NURSE FOR DENNIS.
--- NOTE | 2022-07-11 19:30 | NUR ---
nelson hammond opening Received patient currently getting HD. Patient is a/ox3. no s/s of apparent distress on room air. no c/o pain at this time. reading sr Addendum: 07/11/22 at 2004 by LISA LUBIN RN disregard
--- NOTE | 2022-07-11 19:30 | NUR ---
nelson rn opening Received patient currently getting HD. Patient is a/ox3. no s/s of apparent distress on room air. no c/o pain at this time. reading V-pacing on the tele monitor at this time. IV access on the Left hand #20g on saline lock. safety in place-- bed in lowest locked position, call light within reach, HD nurse at bed side at this time. will cont. with patient's plan of care.
[2022-07-11 20:00] VITALS: BP 121/62
[2022-07-11] MEDS: MOXIFLOXACIN OPTH 3 ML BOTTLE LEFTEYE SCH (21:30)
[2022-07-11] MEDS: *INSULIN REGULAR(HUMULIN R)HUM 100 UNIT/ML VIAL SQ PRN (22:27)
--- NOTE | 2022-07-11 22:29 | NUR ---
noc rn note blood sugar 97 this evening. No coverage needed. Patient asked for snack, given turkey sandwich. Calling Nursing Serena Cisneros for patient Vigamox eye drop, not on cassette. Awaiting.
[2022-07-12] VITALS (8 sets, daily range): BP systolic 90–121; BP diastolic 46–69
--- NOTE | 2022-07-12 05:20 | NUR ---
noc rn note Patient became agitated at this time, ripped his IV off, started screaming and to quote "I'M IN HEAVEN!" "I'M YOUR GOD!" etc. swinging his arms and almost hit the MAIL READER and RN. Unable to insert new IV in d/t patient behavior. Messaged hospitalist Dr. Valerio for an order and MD ordered Ativan IM 2mg Q6HRS PRN For agitation. awaiting for order to be verified.
[2022-07-12] MEDS: LORAZEPAM INJ 2 MG/ML VIAL IM PRN (05:29)
--- NOTE | 2022-07-12 05:30 | NUR ---
noc rn note Administered Ativan 2mg IM as ordered for agitation. Patient still screaming at this time. No IV for now will insert a new line when patient behavior permits.
[2022-07-12] MEDS: BLOOD SUGAR DIAGNOSTIC 1 EACH STRIP VI SCH ×4 (07:03→22:26)
[2022-07-12] MEDS: INSULIN REGULAR, HUMAN 100 UNIT/ML 3 ML VIAL SQ PRN ×3 (07:04→17:44)
--- NOTE | 2022-07-12 07:05 | NUR ---
nelson rn note-- non-admin Blood sugar 149, insulin coverage held because patient somnolent at this time and do not know if patient is going to eat since I gave him IM Ativan 2mg. Patient had sandwich beforse hand last night and he finished the rest this am. Patient I can tell is ready to hibernate.
--- NOTE | 2022-07-12 07:36 | NUR ---
noc rn note needs attended. report given to AURELIA Padgett for continuity of care.
--- NOTE | 2022-07-12 07:50 | NUR ---
RN OPENING NOTES Patient awake in bed, is a/ox3. cooperative and no signs of behavioral issues at this time. no s/s of apparent distress on room air. no c/o pain at this time. reading V-pacing hr 68 on the tele monitor at this time. IV access on the RFA #22g on saline lock. safety in place-- bed in lowest locked position, call light within reach, will continue to monitor.
[2022-07-12] MEDS: LEVOTHYROXINE SODIUM 75 MCG TABLET PO SCH (08:25)
[2022-07-12] MEDS: MOXIFLOXACIN OPTH 3 ML BOTTLE LEFTEYE SCH (09:00)
[2022-07-12] MEDS: MAGNESIUM OXIDE 400 MG TABLET PO SCH (09:00)
[2022-07-12] MEDS: ASPIRIN 81 MG TAB.CHEW PO SCH (09:00)
[2022-07-12] MEDS: CARVEDILOL 12.5 MG TABLET PO SCH ×2 (09:01→17:23)
[2022-07-12] MEDS: CALCIUM CARBONATE (1250) 500 MG TABLET PO SCH (09:18)
[2022-07-12] MEDS: CALCIUM ACETATE 667 MG CAP/TAB PO SCH ×3 (09:18→17:23)
[2022-07-12] MEDS: FENOFIBRATE NANOCRYS (145 MG) 145 MG TABLET PO SCH (09:18)
[2022-07-12 09:45] LABS: CALCIUM, SERUM 8.4 mg/dL (8.5-10.1); MAGNESIUM 2.5 mg/dL (1.8-2.4); PHOSPHORUS 6.2 mg/dL (2.5-4.9); POTASSIUM 5.1 mmol/L (3.5-5.1)
[2022-07-12 09:46] LABS: CREATININE 8.7 mg/dL (0.6-1.3)
[2022-07-12 09:52] LABS: BASOPHILS # (AUTO) 0.1 K/uL (0.0-0.2); MONOCYTES # (AUTO) 0.6 K/uL (0.1-1.30); NEUTROPHILS # (AUTO) 4.1 K/uL (1.8-8.9); WHITE BLOOD COUNT (AUTO) 5.9 K/uL (4.3-11.0)
[2022-07-12 10:22] LABS: EOSINOPHILS % (AUTO) 1.7 % (0.0-6.0); HEMATOCRIT 39 % (39-51); LYMPHOCYTES % (AUTO) 17.2 % (20.0-44.0); MEAN CORPUSCULAR HGB CONC 33 g/dl (31.0-36.0); MEAN CORPUSCULAR VOLUME 97 fL (80-96); MONOCYTES % (AUTO) 9.9 % (2.0-12.0); NEUTROPHILS % (AUTO) 70.2 % (43.0-81.0); PLATELET COUNT (AUTO) 255 K/uL (150-450); RED BLOOD CELL COUNT(AUTO) 4.05 MIL/uL (4.5-6.0)
[2022-07-12] MEDS: OFLOXACIN 0.3% OPHTH 5 ML BOTTLE LEFTEYE SCH ×4 (11:38→22:34)
[2022-07-12] MEDS ORDERED: MOXIFLOXACIN OPTH 3 ML BOTTLE LEFTEYE SCH (13:00)
[2022-07-12] MEDS: ACYCLOVIR IV 500 MG in IV D5W 100 ML IV SCH (13:20)
[2022-07-12] MEDS: ATORVASTATIN 40 MG TABLET PO SCH (17:30)
--- NOTE | 2022-07-12 18:51 | NUR ---
RN CLOSING NOTES Patient awake in bed, a/ox3. no s/s of apparent distress on room air. no c/o pain at this time. reading V-pacing sr 76 on the tele monitor at this time. IV access on the Left hand #20g on saline lock. no behavioral issues noted. safety in place-- bed in lowest locked position, call light within reach, endorsed to next nod.
--- NOTE | 2022-07-12 19:30 | NUR ---
noc rn opening Received patient in bed . Patient is a/ox3. no s/s of apparent distress on room air. no c/o pain at this time. reading V-pacing on the tele monitor at this time. IV access on the Left FA#18g on saline lock. safety in place-- bed in lowest locked position, call light within reach, will cont. with patient's plan of care.
--- NOTE | 2022-07-12 20:00 | NUR ---
noc rn note patient's brother Reid at bed side and brought in the [employer] device that transfer information of patient's HR and goes to patient's apricot washer Dr. Sara Murillo. Per brother patient has hx of PTSD hence the patient's outburst and always wanting to "fight". Also per brother, patient was diagnosed with Autism as a child. 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
[2022-07-12] MEDS: *INSULIN REGULAR(HUMULIN R)HUM 100 UNIT/ML VIAL SQ PRN (22:26)
--- NOTE | 2022-07-12 22:32 | NUR ---
noc rn note blood sugar 82 this evening. No coverage needed. Patient given snack at bedside.
--- NOTE | 2022-07-13 02:04 | NUR ---
noc rn note patient pulled his IV out again. new line established on rt. fa #18g. will monitor.
[2022-07-13] MEDS: LORAZEPAM INJ 2 MG/ML VIAL IM PRN (02:31)
--- NOTE | 2022-07-13 02:37 | NUR ---
noc rn note patient behavior starting escalating again. Staring to talk gibberish and "His God" etc. trying to get out of bed and pulled off all lines of including his tele box and the linens. Given Ativan 2mg IM as ordered for agitation. safety in place. will monitor.
[2022-07-13] MEDS: OFLOXACIN 0.3% OPHTH 5 ML BOTTLE LEFTEYE SCH ×6 (02:46→21:40)
[2022-07-13 04:00] VITALS: BP 118/65
[2022-07-13] MEDS: BLOOD SUGAR DIAGNOSTIC 1 EACH STRIP VI SCH ×4 (06:40→21:39)
[2022-07-13] MEDS: INSULIN REGULAR, HUMAN 100 UNIT/ML 3 ML VIAL SQ PRN ×2 (06:41→11:31)
--- NOTE | 2022-07-13 06:52 | NUR ---
noc rn closing note patient in bed with eyes closed, easy to arouse. no s/s of apparent distress on room air. reading V-pacing this am @58bpm. new iv access on R.FA #18g saline lock. RCW permacath intact. all needs attended. all scheduled medications administered. Patient is scheduled for dialysis this am. safety in place. will endorse tr Johnson morning shift rn for continuity of patient care.
[2022-07-13 07:00] VITALS: BP 95/59
[2022-07-13 07:37] LABS: BASOPHILS # (AUTO) 0.1 K/uL (0.0-0.2); BASOPHILS % (AUTO) 1.2 % (0.0-2.0); EOSINOPHILS % (AUTO) 3.1 % (0.0-6.0); HEMATOCRIT 39 % (39-51); HEMOGLOBIN 12.9 g/dL (13.5-17.5); LYMPHOCYTES % (AUTO) 16.9 % (20.0-44.0); MEAN CORPUSCULAR HGB CONC 33 g/dl (31.0-36.0); MEAN CORPUSCULAR VOLUME 98 fL (80-96); MONOCYTES # (AUTO) 0.4 K/uL (0.1-1.30); MONOCYTES % (AUTO) 6.7 % (2.0-12.0); NEUTROPHILS # (AUTO) 4.3 K/uL (1.8-8.9); NEUTROPHILS % (AUTO) 72.1 % (43.0-81.0); PLATELET COUNT (AUTO) 249 K/uL (150-450); RED BLOOD CELL COUNT(AUTO) 3.99 MIL/uL (4.5-6.0); WHITE BLOOD COUNT (AUTO) 5.9 K/uL (4.3-11.0)
[2022-07-13] MEDS: CALCIUM ACETATE 667 MG CAP/TAB PO SCH ×3 (07:38→17:36)
[2022-07-13] MEDS: LEVOTHYROXINE SODIUM 75 MCG TABLET PO SCH (07:38)
--- NOTE | 2022-07-13 07:54 | NUR ---
RN OPENING NOTES received patient awake in bed, easy to arouse. no s/s of apparent distress on room air. reading sinus rhythm V-pacing at this time @62bpm. IV access on R.FA #18g saline lock. RCW permacath intact. Safety in place. call light within reach. will continue to monitor patient.
[2022-07-13] MEDS: FENOFIBRATE NANOCRYS (145 MG) 145 MG TABLET PO SCH (08:24)
[2022-07-13] MEDS: CALCIUM CARBONATE (1250) 500 MG TABLET PO SCH (08:24)
[2022-07-13] MEDS: ASPIRIN 81 MG TAB.CHEW PO SCH (08:24)
[2022-07-13] MEDS: MAGNESIUM OXIDE 400 MG TABLET PO SCH (08:24)
[2022-07-13] MEDS: CARVEDILOL 12.5 MG TABLET PO SCH ×2 (08:25→16:24)
--- NOTE | 2022-07-13 08:55 | NUR ---
WOUND CARE CONSULT: PT PRESENTS WITH REDNESS AND LESIONS TO LEFT EYELID AND LEFT FOREHEAD AREA, PRESENT ON ADMISSION. PT IS UNABLE TO OPEN HIS LEFT EYE. DR HARRISON CALLED FOR SURGICAL CONSULT. DEFER TO PMD FOR POSSIBLE OPTHALMOLOGY CONSULT. MD IN AGREEMENT WITH PLAN OF CARE.
[2022-07-13 09:27] LABS: CALCIUM, SERUM 8.8 mg/dL (8.5-10.1); MAGNESIUM 2.8 mg/dL (1.8-2.4); PHOSPHORUS 6.4 mg/dL (2.5-4.9); POTASSIUM 5.3 mmol/L (3.5-5.1)
[2022-07-13 09:30] LABS: CREATININE 10.4 mg/dL (0.6-1.3)
--- NOTE | 2022-07-13 09:48 | NUR ---
RN NOTES PATIENT HAS CRITICAL HIGH CREATININE OF 10.4 AND ON HD RIGHT NOW. UPDATE GILBERT WILSON AND ACKNOWLEDGED IT.
--- NOTE | 2022-07-13 10:04 | NUR ---
RN NOTES PT WITH ONGOING HD VIA RCW PERMA CATH AND NOTED WITH LOW BP 94/71MMHG. HD NURSE SELMA INFORMED YOVANNY MCCARTY WITH ORDER TO ADMINISTER ALBUMIN 25% 100ML PRN FOR LOW BP DURING HD.
[2022-07-13] MEDS ORDERED: ALBUMIN 25% 25 GM in PREMIX 1 EA IV PRN (10:30)
[2022-07-13 11:26] VITALS: BP 119/70
[2022-07-13] MEDS: ACYCLOVIR IV 500 MG in IV D5W 100 ML IV SCH (13:50)
--- NOTE | 2022-07-13 14:37 | NUR ---
RN NOTES PT COMPLETED AND TOLERATED HD VIA RCW PERMACATH WITH 1000 ML OUT.
--- NOTE | 2022-07-13 15:04 | NUR ---
RN NOTES PT FOR X-RAY LUMBAR PUNCTURE, OBTAINED TEL CONSENT FROM PT'S SANDRA ABARCA AT [facility] # [phone]. CALLED COLETTE FROM RADIOLOGY AND INFORMED HIM THAT WE ALREADY HAD THE CONSENT AND HE STATED THAT RADIOLOGY MD WILL DO IT TOMORROW.
[2022-07-13 16:00] VITALS: BP 128/62
[2022-07-13] MEDS ORDERED: ACYCLOVIR 200 MG CAPSULE PO SCH (17:00)
[2022-07-13] MEDS: ATORVASTATIN 40 MG TABLET PO SCH (17:36)
--- NOTE | 2022-07-13 18:22 | NUR ---
RN CLOSING NOTES patient in bed with eyes closed. no s/s of apparent distress on room air. IV access on R.FA #18g saline lock intact and patent. RCW permacath intact. Safety in place. call light within reach. will endorse to welder 2nd shift nurse for kale.
--- NOTE | 2022-07-13 19:30 | NUR ---
MS RN OPENING NOTE RECEIVED PATIENT IN BED, AWAKE, ALERT X2 WITH CONFUSION, BROTHER AT BEDSIDE. AFEBRILE AND NOT IN ANY FORM OF ACUTE DISTRESS. BREATHING EVEN AND NON LABORED. NO C/O PAIN OR DISCOMFORT AT THIS TIME. WITH IV ACCESS N RFA 18G-SL. WITH RCW PERMA CATH, DRESSING DRY AND INTACT. HAD DIALYSIS TODAY WITH 1L OUTPUT. SAFETY MEASURES IN PLACE. KEPT BED IN LOCKED AND IN LOW POSITION. SIDE RAILS UP X2. ADVISED TO USE THE CALL LIGHT WHEN IN NEED OF ASSISTANCE.
[2022-07-13 20:00] VITALS: BP 113/67
[2022-07-13] MEDS: NEOMY SULF/BACITRAC ZN/POLY 15 GM TUBE TP SCH (22:00)
--- NOTE | 2022-07-13 22:51 | NUR ---
MS RN NOTE RECEIVED NEW ORDER FOR NEOSPORIN OINTMENT BUT PER FARM MACHINERY ERECTOR, MEDICATION IS NOT AVAILABLE IN THE MED STOCK/CABINET AND WASN'T ABLE TO ADMINISTER DURING THE SHIFT. NOTIFIED CN.
--- NOTE | 2022-07-14 06:25 | NUR ---
MS RN CLOSING NOTE PATIENT IN BED, ASLEEP BUT EASY TO AROUSE AND RESPONSIVE. AFEBRILE AND NOT IN ANY FORM OF ACUTE DISTRESS. BREATHING EVEN AND NON LABORED. NO C/O PAIN OR DISCOMFORT THROUGHOUT THE SHIFT. WITH IV ACCESS N RFA 18G-SL. WITH RCW PERMA CATH, DRESSING DRY AND INTACT. MEDICATED ORDERED. MONITORED FOR ANY S/SX. OF HYPO/HYPERGLYCEMIA. SAFETY MEASURES IN PLACE. KEPT BED IN LOCKED AND IN LOW POSITION. SIDE RAILS UP X2. ADVISED TO USE THE CALL LIGHT WHEN IN NEED OF ASSISTANCE. ALL NURSING NEEDS ATTENDED. ENDORSED TO INCOMING SHIFT FOR CONTINUITY OF CARE.
[2022-07-14] MEDS: BLOOD SUGAR DIAGNOSTIC 1 EACH STRIP VI SCH ×4 (06:41→22:00)
[2022-07-14 06:49] LABS: BASOPHILS # (AUTO) 0.1 K/uL (0.0-0.2); BASOPHILS % (AUTO) 1.1 % (0.0-2.0); EOSINOPHILS % (AUTO) 4.2 % (0.0-6.0); HEMATOCRIT 40 % (39-51); HEMOGLOBIN 12.9 g/dL (13.5-17.5); LYMPHOCYTES % (AUTO) 17.3 % (20.0-44.0); MEAN CORPUSCULAR HGB CONC 33 g/dl (31.0-36.0); MEAN CORPUSCULAR VOLUME 99 fL (80-96); MONOCYTES # (AUTO) 0.4 K/uL (0.1-1.30); MONOCYTES % (AUTO) 6.5 % (2.0-12.0); NEUTROPHILS # (AUTO) 4.3 K/uL (1.8-8.9); NEUTROPHILS % (AUTO) 70.9 % (43.0-81.0); PLATELET COUNT (AUTO) 257 K/uL (150-450); RED BLOOD CELL COUNT(AUTO) 3.99 MIL/uL (4.5-6.0)
[2022-07-14 07:00] VITALS: BP 104/63
[2022-07-14 07:32] LABS: CALCIUM, SERUM 8.6 mg/dL (8.5-10.1); MAGNESIUM 2.6 mg/dL (1.8-2.4); POTASSIUM 4.8 mmol/L (3.5-5.1)
[2022-07-14 07:39] LABS: CREATININE 7.9 mg/dL (0.6-1.3)
[2022-07-14] MEDS: CALCIUM ACETATE 667 MG CAP/TAB PO SCH ×3 (07:39→17:15)
[2022-07-14] MEDS: LEVOTHYROXINE SODIUM 75 MCG TABLET PO SCH (07:39)
--- NOTE | 2022-07-14 07:50 | NUR ---
MS RN OPENING NOTE RECEIVED PATIENT AWAKE IN BED, AWAKE, ALERT X2 WITH CONFUSION. NO S/S OF DISTRESS ON ROOM AIR. BREATHING EVEN AND NON LABORED. NO C/O PAIN OR DISCOMFORT AT THIS TIME. WITH IV ACCESS N RFA 18G-SL. WITH RCW PERMA CATH, DRESSING DRY AND INTACT. SAFETY MEASURES IN PLACE. KEPT BED IN LOCKED AND IN LOW POSITION. SIDE RAILS UP X2. ADVISED TO USE THE CALL LIGHT WHEN IN NEED OF ASSISTANCE. WILL CONTINUE TO MONITOR PATIENT.
[2022-07-14] MEDS: FENOFIBRATE NANOCRYS (145 MG) 145 MG TABLET PO SCH (08:52)
[2022-07-14] MEDS: CALCIUM CARBONATE (1250) 500 MG TABLET PO SCH (08:52)
[2022-07-14] MEDS: MAGNESIUM OXIDE 400 MG TABLET PO SCH (08:54)
[2022-07-14] MEDS: CARVEDILOL 12.5 MG TABLET PO SCH ×2 (08:54→17:10)
[2022-07-14] MEDS: NEOMY SULF/BACITRAC ZN/POLY 15 GM TUBE TP SCH (08:57)
[2022-07-14] MEDS: ASPIRIN 81 MG TAB.CHEW PO SCH (08:57)
[2022-07-14] MEDS: OFLOXACIN 0.3% OPHTH 5 ML BOTTLE LEFTEYE SCH ×4 (08:59→22:00)
[2022-07-14] MEDS: INSULIN REGULAR, HUMAN 100 UNIT/ML 3 ML VIAL SQ PRN ×2 (11:38→17:05)
--- NOTE | 2022-07-14 11:55 | NUR ---
RN NOTES RECEIVED CALL FROM RADIOLOGY THAT PT NEEDS STAT PTT, PT AND INR BEFORE THEY CAN DO LUMBAR PUNCTURE.
--- NOTE | 2022-07-14 12:08 | NUR ---
RN NOTES CALLED LAB TO DRAW BLOOD STAT FOR PTT, PT AND INR.
--- NOTE | 2022-07-14 13:35 | NUR ---
RN NOTES DIRECTOR PHONE CAME AND JUST DID DRAW BLOOD FOR PTT, PT AND INR. INFORMED HER TO CALL US ONCE RESULTS ARE READY.
[2022-07-14] MEDS: ACYCLOVIR IV 500 MG in IV D5W 100 ML IV SCH (13:42)
--- NOTE | 2022-07-14 15:14 | NUR ---
RN NOTES CALLED RADIOLOGY AND INFORMED THAT PT, PTT AND INR RESULTS ARE OUT. HE SAID THAT THEY WILL DO LUMBAR PUNCTURE TOMORROW.
[2022-07-14 16:00] VITALS: BP 130/70
[2022-07-14] MEDS: ATORVASTATIN 40 MG TABLET PO SCH (17:15)
--- NOTE | 2022-07-14 18:51 | NUR ---
RN CLOSING NOTES patient awake in bed, family at bedside, A/0 X2-3, mild confusion and forgetfulness at times, no s/s of apparent distress on room air. hob elevated, breathing even and unlabored. IV access on R.FA #18g saline lock intact and patent. RCW permacath intact. Safety measures in place, bed in lowest locked position, side rails up x3, bed alarm on, call light within reach. will endorse to campus manager nurse for kale.
--- NOTE | 2022-07-14 19:56 | NUR ---
MS RN OPENING NOTE PATIENT AWAKE IN BED WITH FAMILY AT BEDSIDE, ALERT/ORIENTED X 2-3, LESS CONFUSED PER DAYSHIFT RN, PT ABLE TO MAKE NEEDS KNOWN. PATIENT STABLE ON RA, NO S/S OF DISTRESS OR SOB NOTED, BREATHING EVEN AND UNLABORED. IV ACCESS ON RFA #18G INTACT AND SALINE LOCKED. LEFT EYE LESIONS NOTED. SAFETY MEASURES IN PLACE: CALL LIGHT WITHIN REACH, SIDE RAILS UP X 3, BED LOCKED IN LOWEST POSITION, HOB ELEVATED, BED ALARM ON. WILL CONTINUE TO MONITOR PATIENT
[2022-07-14 20:00] VITALS: BP 123/63
[2022-07-14] MEDS: *INSULIN REGULAR(HUMULIN R)HUM 100 UNIT/ML VIAL SQ PRN (22:01)
[2022-07-15] MEDS: BLOOD SUGAR DIAGNOSTIC 1 EACH STRIP VI SCH ×4 (06:48→21:52)
[2022-07-15] MEDS: INSULIN REGULAR, HUMAN 100 UNIT/ML 3 ML VIAL SQ PRN (06:49)
--- NOTE | 2022-07-15 06:55 | NUR ---
MS RN CLOSING NOTE PATIENT AWAKE IN BED, ALERT/ORIENTED X 2-3 WITH SOME CONFUSION AND FORGETFULNESS AT TIMES, PT ABLE TO MAKE NEEDS KNOWN. PATIENT STABLE ON RA, NO S/S OF DISTRESS OR SOB NOTED, BREATHING EVEN AND UNLABORED. IV ACCESS ON RFA #18G INTACT AND SALINE LOCKED. MEDICATIONS GIVEN ORDERED, PT NEEDS MET THROUGHOUT SHIFT, PATIENT WAS CALM ALL NIGHT, NO SIGNIFICANT CHANGES. PATIENT HAVING LUMBAR PUNCTURE TODAY. SAFETY MEASURES IN PLACE: CALL LIGHT WITHIN REACH, SIDE RAILS UP X 3, BED LOCKED IN LOWEST POSITION, HOB ELEVATED, BED ALARM ON. WILL ENDORSE TO DAYSHIFT RN FOR CONTINUITY OF CARE
[2022-07-15 07:00] VITALS: BP 125/67
--- NOTE | 2022-07-15 07:28 | NUR ---
MS RN NOTES PATIENT IN BED ALERT ORIENTED X 2, WITH PERIOD OF CONFUSION AND FORGETFULNESS. NO ACUTE DISTRESS NOTED, BREATHING UNLABORED, NO FACIAL GRIMACING NOTED. RIGHT CHEST WALL DIALYSIS ACCESS INTACT WITH DRESSING CLEAN AND DRY. IV ACCESS PATENT AND INTACT, NO REDNESS, NO SWELLING NOTED. SAFETY MEASURES IN PLACE. ISOLATION PRECAUTION IN PLACE. CALL LIGHT WITHIN REACH. WILL CONTINUE TO MONITOR ACCORDINGLY
[2022-07-15] MEDS: LEVOTHYROXINE SODIUM 75 MCG TABLET PO SCH (07:41)
[2022-07-15] MEDS ORDERED: NEPRO VAN 237 ML CAN PO PRN (08:30)
[2022-07-15] MEDS: MAGNESIUM OXIDE 400 MG TABLET PO SCH (08:46)
[2022-07-15] MEDS: CALCIUM ACETATE 667 MG CAP/TAB PO SCH ×3 (08:46→17:16)
[2022-07-15] MEDS: CALCIUM CARBONATE (1250) 500 MG TABLET PO SCH (08:46)
[2022-07-15] MEDS: ASPIRIN 81 MG TAB.CHEW PO SCH (08:47)
[2022-07-15] MEDS: FENOFIBRATE NANOCRYS (145 MG) 145 MG TABLET PO SCH (08:47)
[2022-07-15] MEDS: NEOMY SULF/BACITRAC ZN/POLY 15 GM TUBE TP SCH (08:49)
[2022-07-15] MEDS: OFLOXACIN 0.3% OPHTH 5 ML BOTTLE LEFTEYE SCH ×4 (08:50→21:39)
[2022-07-15] MEDS: CARVEDILOL 12.5 MG TABLET PO SCH ×2 (08:56→16:10)
--- NOTE | 2022-07-15 08:56 | NUR ---
MS RN NOTES HELD COREG PATIENT WILL HAVE DIALYSIS TODAY
[2022-07-15] MEDS: ACYCLOVIR IV 500 MG in IV D5W 100 ML IV SCH (16:08)
--- NOTE | 2022-07-15 16:11 | NUR ---
MS RN NOTES HELD COREG PATIENT WILL HAVE DIALYSIS TODAY
--- NOTE | 2022-07-15 16:30 | NUR ---
MS RN NOTES DIALYSIS DONE, 2.5 LITERS OUT PER DIALYSIS NURSE ZAK, VITAL SIGNS REMAIN REMAIN STABLE
--- NOTE | 2022-07-15 16:34 | NUR ---
MS RN NOTES FOLLOWED UP WITH RADIOLOGY REGARDING LUMBAR PUNCTURE AND SAID NO RADIOLOGY AVAILABLE AT THIS TIME , WILL BE SCHEDULED FOR TOMORROW.
[2022-07-15] MEDS: ATORVASTATIN 40 MG TABLET PO SCH (17:16)
[2022-07-15 17:44] VITALS: BP 93/50
--- NOTE | 2022-07-15 18:31 | NUR ---
MS RN NOTES PATIENT IN BED ALERT ORIENTED X 2, WITH PERIOD OF CONFUSION AND FORGETFULNESS. NO ACUTE DISTRESS NOTED, BREATHING UNLABORED, NO FACIAL GRIMACING NOTED. RIGHT CHEST WALL DIALYSIS ACCESS INTACT WITH DRESSING CLEAN AND DRY. IV ACCESS PATENT AND INTACT, NO REDNESS, NO SWELLING NOTED. NEEDS ATTENDED AND ANTICIPATED. SAFETY MEASURES IN PLACE. ISOLATION PRECAUTION IN PLACE. CALL LIGHT WITHIN REACH. WILL ENDORSE TO NIGHT NURSE FOR CONTINUITY OF CARE.
--- NOTE | 2022-07-15 19:30 | NUR ---
MS RN OPENING NOTE RECEIVED PATIENT FROM AM NURSE; PATIENT IN BED WITH TWO RELATIVES AT BEDSIDE, A/O X 2, WITH PERIOD OF CONFUSION AND FORGETFULNESS; STABLE ON ROOM AIR TOLERATING WELL WITH NO ACUTE DISTRESS NOTED, BREATHING EVENLY AND UNLABORED; WITH RIGHT CHEST WALL DIALYSIS ACCESS INTACT WITH DRESSING CLEAN AND DRY; WITH IV ACCESS ON RFA PATENT AND INTACT; ENCOURAGED VERBALIZATION OF NEEDS; SAFETY MEASURES IN PLACE; BED IN LOW AND LOCKED POSITION, SIDE RAILS UP X 3, CALL LIGHT WITHIN REACH; ISOLATION PRECAUTION IN PLACE; WILL CONTINUE TO MONITOR THROUGHOUT SHIFT
[2022-07-15 20:00] VITALS: BP 146/79
[2022-07-16] MEDS: BLOOD SUGAR DIAGNOSTIC 1 EACH STRIP VI SCH ×4 (06:36→21:26)
--- NOTE | 2022-07-16 06:58 | NUR ---
MS RN CLOSING NOTE PATIENT IN BED, A/O X 2, WITH PERIOD OF CONFUSION AND FORGETFULNESS; STABLE ON ROOM AIR TOLERATING WELL WITH NO ACUTE DISTRESS NOTED, BREATHING EVENLY AND UNLABORED; WITH RIGHT CHEST WALL DIALYSIS ACCESS INTACT WITH CLEAN AND DRY DRESSING; WITH IV ACCESS ON RFA, PATENT AND INTACT; ADMINISTERED MEDICATIONS PRESCRIBED; PATIENT'S NEEDS ATTENDED; MONITORED PATIENT ACCORDINGLY; SAFETY MEASURES IN PLACE; BED IN LOW AND LOCKED POSITION, SIDE RAILS UP X 3, CALL LIGHT WITHIN REACH; ISOLATION PRECAUTION REMAINED IN PLACE; WILL ENDORSE TO AM NURSE FOR DENNIS.
--- NOTE | 2022-07-16 07:18 | NUR ---
MS RN OPENING NOTE PATIENT IN BED AWAKE, PATIENT IS A/O X 2-3, WITH PERIOD OF CONFUSION AND FORGETFULNESS. PATIENT IS STABLE ON ROOM AIR TOLERATING WELL WITH NO SIGNS OF DISTRESS NOTED. NO COMPLAIN DISCOMFORT AT THIS TIME. WITH RIGHT CHEST WALL PERMACATH FOR HEMODIALYSIS COVERED WITH DRESSING DRY AND INTACT. WITH IV ACCESS ON RFA G18 ON SALINE LOCK, PATENT AND INTACT. SAFETY MEASURES IN PLACE; BED IN LOW AND LOCKED POSITION, SIDE RAILS UP X 3, CALL LIGHT WITHIN REACH. ON ISOLATION PRECAUTION. WILL CONTINUE WITH PLAN OF CARE.
[2022-07-16 08:00] VITALS: BP 112/48
[2022-07-16] MEDS: CALCIUM CARBONATE (1250) 500 MG TABLET PO SCH (08:18)
[2022-07-16] MEDS: LEVOTHYROXINE SODIUM 75 MCG TABLET PO SCH (08:18)
[2022-07-16] MEDS: CALCIUM ACETATE 667 MG CAP/TAB PO SCH ×3 (08:18→17:34)
[2022-07-16] MEDS: FENOFIBRATE NANOCRYS (145 MG) 145 MG TABLET PO SCH (08:18)
[2022-07-16] MEDS: ASPIRIN 81 MG TAB.CHEW PO SCH (08:18)
[2022-07-16] MEDS: MAGNESIUM OXIDE 400 MG TABLET PO SCH (08:18)
[2022-07-16] MEDS: CARVEDILOL 12.5 MG TABLET PO SCH ×2 (09:06→17:33)
[2022-07-16] MEDS: OFLOXACIN 0.3% OPHTH 5 ML BOTTLE LEFTEYE SCH ×4 (09:07→21:21)
[2022-07-16] MEDS: NEOMY SULF/BACITRAC ZN/POLY 15 GM TUBE TP SCH (09:08)
[2022-07-16] MEDS: INSULIN REGULAR, HUMAN 100 UNIT/ML 3 ML VIAL SQ PRN (13:08)
[2022-07-16] MEDS: ACYCLOVIR IV 500 MG in IV D5W 100 ML IV SCH (13:59)
[2022-07-16 15:59] VITALS: BP 84/36
--- NOTE | 2022-07-16 16:45 | NUR ---
MS DISCHARGE NOTES. PATIENT DISCHARGED ORDERED. PICKED UP BY EMT VIA [facility]. IV ACCESS REMOVED. PATIENT IS IN STABLE CONDITION. PICTURE TAKEN AND WAS ATTACHED TO CHART. REINFORCE HEALTH TEACHING. BELONGINGS ENDORSED TO EMT. ENDORSED TO FACILITY NURSE PROSPER MERAZ. ENDORSED ACCORDINGLY. Addendum: 07/16/22 at 1718 by SOHAM BILLINGS RN WRONG ENTRY
[2022-07-16] MEDS: ATORVASTATIN 40 MG TABLET PO SCH (17:34)
--- NOTE | 2022-07-16 18:54 | NUR ---
MS RN CLOSING NOTE PATIENT IN BED, A/O X 2-3, WITH PERIOD OF CONFUSION AND FORGETFULNESS; STABLE ON ROOM AIR TOLERATING WELL WITH NO ACUTE DISTRESS NOTED, BREATHING EVENLY AND UNLABORED; WITH RIGHT CHEST WALL DIALYSIS ACCESS INTACT WITH CLEAN AND DRY DRESSING; WITH IV ACCESS ON RIGHT FOREARM, G#18, PATENT AND INTACT; DUE MEDS GIVEN; PATIENT'S NEEDS ATTENDED; MONITORED PATIENT ACCORDINGLY; SAFETY MEASURES IN PLACE; BED IN LOW AND LOCKED POSITION, SIDE RAILS UP X 3, CALL LIGHT WITHIN REACH; ISOLATION PRECAUTION REMAINED IN PLACE; WILL ENDORSE TO NIGHT NURSE FOR CONTINUITY OF CARE.
--- NOTE | 2022-07-16 19:30 | NUR ---
MS RN OPENING NOTE PATIENT IN BED WITH RELATIVES AT BEDSIDE, A/O X 2, WITH PERIOD OF CONFUSION AND FORGETFULNESS; STABLE ON ROOM AIR TOLERATING WELL WITH NO ACUTE DISTRESS NOTED, BREATHING EVENLY AND UNLABORED; WITH RCW DIALYSIS ACCESS INTACT WITH CLEAN AND DRY DRESSING; WITH IV ACCESS ON RFA PATENT AND INTACT; ENCOURAGED VERBALIZATION OF NEEDS; SAFETY MEASURES IN PLACE; BED IN LOW AND LOCKED POSITION, SIDE RAILS UP X 3, CALL LIGHT WITHIN REACH; ISOLATION PRECAUTION IN PLACE; WILL CONTINUE TO MONITOR THROUGHOUT SHIFT
[2022-07-16 20:00] VITALS: BP 90/45
[2022-07-17] MEDS: BLOOD SUGAR DIAGNOSTIC 1 EACH STRIP VI SCH ×4 (06:52→21:30)
[2022-07-17 07:00] VITALS: BP 110/52
--- NOTE | 2022-07-17 07:03 | NUR ---
MS RN CLOSING NOTE PATIENT RESTING IN BED, A/O X 2, WITH PERIODS OF CONFUSION AND FORGETFULNESS; STABLE ON ROOM AIR TOLERATING WELL WITH NO ACUTE DISTRESS NOTED, BREATHING EVENLY AND UNLABORED; WITH RCW DIALYSIS ACCESS INTACT WITH CLEAN AND DRY DRESSING; WITH IV ACCESS ON RFA, PATENT AND INTACT; ADMINISTERED MEDICATIONS PRESCRIBED; PATIENT'S NEEDS ATTENDED; MONITORED ACCORDINGLY; SAFETY MEASURES IN PLACE; BED IN LOW AND LOCKED POSITION, SIDE RAILS UP X 3, CALL LIGHT WITHIN REACH; ISOLATION PRECAUTION REMAINED IN PLACE; WILL ENDORSE TO AM NURSE FOR DENNIS.
[2022-07-17] MEDS: LEVOTHYROXINE SODIUM 75 MCG TABLET PO SCH (07:30)
--- NOTE | 2022-07-17 07:53 | NUR ---
RN OPENING NOTE RECEIVED PATIENT IN BED AO x 2 -3 CONFUSED AND FORGETFULNESS OCCASIONALLY, ABLE TO RESPONDS PHYSICAL STIMULI. RESPIRATORY EVEN AND UNLABORED IN ROOM AIR. IN NO ACUTE RESPIRATORY DISTRESS OBSERVED. SKIN IS WARM TO TOUCH, KEEP CLEAN/DRY. KEPT ELEVATED HOB FOR ENSURE AIRWAY AND ASPIRATION PRECAUTION, ALSO LOWEST BED POSITIONED. BED ALARM IS ON AT ALL THE TIME FOR SAFETY. CALL LIGHT WITHIN REACH, WILL CONTINUE TO MONITOR.
[2022-07-17] MEDS: CALCIUM ACETATE 667 MG CAP/TAB PO SCH ×3 (08:00→17:29)
[2022-07-17] MEDS: OFLOXACIN 0.3% OPHTH 5 ML BOTTLE LEFTEYE SCH ×4 (08:35→21:30)
[2022-07-17] MEDS: CARVEDILOL 12.5 MG TABLET PO SCH ×2 (08:44→17:00)
[2022-07-17] MEDS: MAGNESIUM OXIDE 400 MG TABLET PO SCH (08:44)
[2022-07-17] MEDS: FENOFIBRATE NANOCRYS (145 MG) 145 MG TABLET PO SCH (08:45)
[2022-07-17] MEDS: NEOMY SULF/BACITRAC ZN/POLY 15 GM TUBE TP SCH (08:45)
[2022-07-17] MEDS: ASPIRIN 81 MG TAB.CHEW PO SCH (08:45)
[2022-07-17] MEDS: CALCIUM CARBONATE (1250) 500 MG TABLET PO SCH (08:45)
[2022-07-17] MEDS: ACYCLOVIR IV 500 MG in IV D5W 100 ML IV SCH (13:31)
[2022-07-17] MEDS: ACETAMINOPHEN 325 MG TABLET PO PRN (13:32)
--- NOTE | 2022-07-17 13:32 | NUR ---
A PATIENT C/ O HEADACHE, PAIN SCALE 5 OUT OF 10. GIVEN TYLENOL. WILL CONTINUE TO MONITOR.
--- NOTE | 2022-07-17 14:00 | NUR ---
THE PATIENT HAS NO FURTHER C/O HEADACHE AFTER TYLENOL TAKEN.
[2022-07-17 16:00] VITALS: BP 126/66
[2022-07-17] MEDS: ATORVASTATIN 40 MG TABLET PO SCH (17:29)
--- NOTE | 2022-07-17 18:26 | NUR ---
RN CLOSING NOTE PATIENT RESTING IN BED. CONFUSED OCCASIONALLY, IN NO ACUTE DISTRESS OBSERVED. . RESPIRATORY EVEN AND UNLABORED IN ROOM AIR. SKIN IS WARM TO TOUCH KEEP CLEAN/DRY. C/O LEFT HIP PAIN KEPT ELEVATED HOB FOR ENSURE AIRWAY/ASPIRATION PRECAUTION, AND LOWEST BED POSITION. BED ALARM IS ON AT ALL THE TIME FOR SAFETY. THE PATIENT REFUSED AM/PM MEDS AND INFORMED MD. CALL LIGHT WITHIN REACH, WILL ENDORSE MIXER OPERATOR VACUUM PAN SALT.
--- NOTE | 2022-07-17 19:00 | NUR ---
RN OPENING NOTE RECEIVED PATIENT IN BED, AWAKE. WITH FAMILY ON BEDSIDE. PATIENT IS CONFUSED OCCASIONALLY, NO ACUTE DISTRESS OBSERVED. IV ACCESS ON LEFT ARM G#20 SALINE LOCK NOTED TO BE FREE FROM INFECTION, IV ACCESS PATENT AND INTACT. PATIENT WITH RIGHT PERMACATH NOTED TO BE CLEAN AND INTACT. PATIENT ON ROOM AIR TOLERATING WELL, BREATHING EVENLY AND UNLABORED. SKIN IS WARM TO TOUCH KEEP CLEAN/DRY. C/O LEFT HIP PAIN KEPT ELEVATED HOB FOR ENSURE AIRWAY/ASPIRATION PRECAUTION, SAFETY MEASURE IN PLACED; BED IS LOCK AND IN LOWEST POSITION. BED ALARM IS ON AT ALL THE TIME FOR SAFETY. CALL LIGHT WITHIN REACH.
[2022-07-17 20:00] VITALS: BP 137/66
[2022-07-17 20:02] VITALS: BP 122/60
[2022-07-17] MEDS: *INSULIN REGULAR(HUMULIN R)HUM 100 UNIT/ML VIAL SQ PRN (21:28)
--- NOTE | 2022-07-18 02:10 | NUR ---
RN NOTES PATIENT HAVING EPISODES OF CONFUSION; NEEDS CONSTANT REDIRECTION. PATIENT VERBALIZES UNDERSTANDING. AFTER REDIRECTED PATIENT IS ABLE TO STATE HIS NAME AND WHERE HE IS NOW STATING "IM IN [facility]".
--- NOTE | 2022-07-18 06:40 | NUR ---
RN CLOSING NOTE PATIENT IN BED, AWAKE. A/OX2-3. EPISODES OF CONFUSION BUT PATIENT IS REDIRECTED AND VERBALIZES UNDERSTANDING. NO ACUTE DISTRESS OBSERVED. IV ACCESS ON LEFT ARM G#20 SALINE LOCK NOTED TO BE FREE FROM INFECTION, IV ACCESS PATENT AND INTACT. PATIENT WITH RIGHT PERMACATH NOTED TO BE CLEAN AND INTACT. PATIENT ON ROOM AIR TOLERATING WELL, BREATHING EVENLY AND UNLABORED. SKIN IS WARM TO TOUCH KEEP CLEAN/DRY. C/O LEFT HIP PAIN KEPT ELEVATED HOB FOR ENSURE AIRWAY/ASPIRATION PRECAUTION. ALL DUE MEDICATIONS IS GIVEN. ALL NEEDS ARE MET. PATIENT MADE COMFORTABLE AND CLEAN. SAFETY MEASURE IN PLACED; BED IS LOCK AND IN LOWEST POSITION. BED ALARM IS ON AT ALL THE TIME FOR SAFETY. CALL LIGHT WITHIN REACH. WILL ENDORSE TO NEXT SHIFT NURSE FOR CONTINUITY OF CARE.
--- NOTE | 2022-07-18 07:28 | NUR ---
RN OPENING NOTE RECEIVED PATIENT IN BED, AWAKE. A/O X 2-3, DENIES PAIN/DISCOMFORT AT THIS TIME. ON ROOM AIR, TOLERATING WELL. IV ACCESS ON LEFT ARM #20G, SALINE LOCK. WITH PERMACATH IN THE RIGHT UPPER CHEST, C/D/I. SAFETY MEASURE IN PLACED: BED IS LOCK AND IN LOWEST POSITION, BED ALARM ON, CALL LIGHT AND TRAY TABLE WITHIN REACH. WILL CONTINUE TO MONITOR.
[2022-07-18] MEDS: CALCIUM ACETATE 667 MG CAP/TAB PO SCH ×3 (07:39→17:04)
[2022-07-18] MEDS: LEVOTHYROXINE SODIUM 75 MCG TABLET PO SCH (07:39)
[2022-07-18] MEDS: BLOOD SUGAR DIAGNOSTIC 1 EACH STRIP VI SCH ×4 (07:39→21:23)
[2022-07-18 08:00] VITALS: BP 137/68
[2022-07-18] MEDS: NEOMY SULF/BACITRAC ZN/POLY 15 GM TUBE TP SCH (08:21)
[2022-07-18] MEDS: OFLOXACIN 0.3% OPHTH 5 ML BOTTLE LEFTEYE SCH ×4 (08:21→21:08)
[2022-07-18] MEDS: ASPIRIN 81 MG TAB.CHEW PO SCH (08:21)
[2022-07-18] MEDS: CALCIUM CARBONATE (1250) 500 MG TABLET PO SCH (08:22)
[2022-07-18] MEDS: MAGNESIUM OXIDE 400 MG TABLET PO SCH (08:22)
[2022-07-18] MEDS: FENOFIBRATE NANOCRYS (145 MG) 145 MG TABLET PO SCH (08:22)
[2022-07-18] MEDS: CARVEDILOL 12.5 MG TABLET PO SCH ×2 (08:22→16:49)
[2022-07-18] MEDS ORDERED: NEPRO VAN 237 ML CAN PO PRN (10:00)
[2022-07-18] MEDS: INSULIN REGULAR, HUMAN 100 UNIT/ML 3 ML VIAL SQ PRN ×2 (11:50→16:52)
--- NOTE | 2022-07-18 13:30 | NUR ---
RN NOTES PATIENT HAD DIALYSIS TODAY WITH TOTAL OUTPUT OF 2500, TOLERATED WELL.
[2022-07-18] MEDS: ACYCLOVIR IV 500 MG in IV D5W 100 ML IV SCH (14:12)
--- NOTE | 2022-07-18 15:30 | NUR ---
RN NOTES RADIOLOGY STAFF CALLED AND INFORMED THAT LP WILL NOT BE DONE TODAY, HE SAID THAT LP IS SCHEDULED TOMORROW MORNING, A PREP FOR THE PROCEDURE HE ADVISED TO PUT PT NPO POST-MIDNIGHT TONIGHT.
[2022-07-18 16:00] VITALS: BP 139/70
[2022-07-18] MEDS: ATORVASTATIN 40 MG TABLET PO SCH (17:03)
--- NOTE | 2022-07-18 18:44 | NUR ---
MS RN CLOSING NOTE PATIENT RESTING IN BED, WITH SISTER IN THE BEDSIDE. A/O X 2-3, DENIES PAIN/DISCOMFORT AT THIS TIME. ON ROOM AIR, TOLERATED WELL. IV ACCESS ON LEFT ARM #20G, SALINE LOCK. WITH PERMACATH IN THE RIGHT UPPER CHEST, C/D/I. PATIENT IS CALM AND COOPERATIVE WITHIN THE SHIFT. SAFETY MEASURE IN PLACED: BED IS LOCK AND IN LOWEST POSITION, BED ALARM ON, CALL LIGHT AND TRAY TABLE WITHIN REACH. WILL ENDORSE DENNIS TO BLOOD BANK CREDIT CLERK.
--- NOTE | 2022-07-18 19:18 | NUR ---
MS RN OPENING NOTE RECEIVED PATIENT RESTING IN BED, WITH SISTER IN THE BEDSIDE. A/O X 2-3,ON ROOM AIR TOLERATED WELL.NO SOB/DISTRESS NOTED,IV ACCESS ON LFA 20G, SALINE LOCK. WITH PERMACATH IN THE RIGHT UPPER CHEST,PATENT AND INTACT,SAFETY MEASURE IN PLACED: BED IS LOCK AND IN LOWEST POSITION, BED ALARM ON, CALL LIGHT AND TRAY TABLE WITHIN REACH. WILL CONTINUE TO MONITOR.
[2022-07-18 20:00] VITALS: BP 108/63
--- NOTE | 2022-07-19 06:11 | NUR ---
MS RN CLOSING NOTES; PATIENT IN BED SLEEPING BUT EASY TO AROUSED,AOX2-3 PERIOD CONFUSION,ON ROOM AIR TOLERATED WELL.NO SOB/DISTRESS NOTED,NO COMPLAINED OF PAIN/DISCOMFORT DURING SHIFT,DUE MEDS GIVEN ORDER,ALL NEED ATTENDED,IV ACCESS ON LFA 20G,SALINE LOCK. WITH PERMACATH IN THE RIGHT UPPER CHEST,PATENT AND INTACT,PT WAS NPO SINCE MID NIGHT FOR PROCEDURED TODAY,SAFETY MEASURE IN PLACED: BED IS LOCK AND IN LOWEST POSITION, BED ALARM ON, CALL LIGHT AND TRAY TABLE WITHIN REACH. WILL ENDORSED TO NEXT SHIFT.
[2022-07-19] MEDS: BLOOD SUGAR DIAGNOSTIC 1 EACH STRIP VI SCH ×4 (06:54→21:27)
[2022-07-19] MEDS: LEVOTHYROXINE SODIUM 75 MCG TABLET PO SCH (07:30)
--- NOTE | 2022-07-19 07:30 | NUR ---
MS RN OPENING NOTES Received pt in bed, awake. A/O x 2-3, with episode of confusion, calm. On RA, tolerating well. IV access in the RFA #22g, SL, c/d/i. With permicath in the right upper chest, c/d/i. Maintained in NPO, scheduled for lumbar puncture today. Safety precautions in place: bed in locked and lowest position, side rails up x 3, call light and tray table within easy reach. Will continue to monitor.
[2022-07-19 08:00] VITALS: BP 85/50
[2022-07-19] MEDS: CALCIUM ACETATE 667 MG CAP/TAB PO SCH ×3 (08:00→17:34)
--- NOTE | 2022-07-19 08:30 | NUR ---
RN NOTE Rechecked BP-128/90. Will continue to monitor.
[2022-07-19] MEDS: MAGNESIUM OXIDE 400 MG TABLET PO SCH (09:38)
[2022-07-19] MEDS: CALCIUM CARBONATE (1250) 500 MG TABLET PO SCH (09:38)
[2022-07-19] MEDS: FENOFIBRATE NANOCRYS (145 MG) 145 MG TABLET PO SCH (09:38)
[2022-07-19] MEDS: ASPIRIN 81 MG TAB.CHEW PO SCH (09:38)
[2022-07-19] MEDS: CARVEDILOL 12.5 MG TABLET PO SCH ×2 (09:39→17:00)
[2022-07-19] MEDS: OFLOXACIN 0.3% OPHTH 5 ML BOTTLE LEFTEYE SCH ×4 (09:39→21:00)
[2022-07-19] MEDS: NEOMY SULF/BACITRAC ZN/POLY 15 GM TUBE TP SCH (09:40)
--- NOTE | 2022-07-19 11:00 | NUR ---
RN NOTES Called radiology department to follow up lumbar puncture scheduled today, radiologist said that LP was refused by pt's family. Dr. Bellamy in the unit, made aware.
[2022-07-19] MEDS: INSULIN REGULAR, HUMAN 100 UNIT/ML 3 ML VIAL SQ PRN ×2 (11:41→16:39)
[2022-07-19] MEDS: ACYCLOVIR IV 500 MG in IV D5W 100 ML IV SCH (13:05)
[2022-07-19 16:00] VITALS: BP 98/94
[2022-07-19] MEDS ORDERED: NEPRO VAN 237 ML CAN PO PRN (17:00)
[2022-07-19] MEDS: ATORVASTATIN 40 MG TABLET PO SCH (17:34)
--- NOTE | 2022-07-19 18:46 | NUR ---
MS RN CLOSING NOTES Pt resting in bed, with relatives in the bedside. A/O x 2, with episode of confusion, hallucination and restlessness. On RA, tolerated well. IV access in the RFA #22g, SL, c/d/i. With permicath in the right upper chest, c/d/i. Scheduled for LP tomorrow. Needs attended. Safety precautions in place: bed in locked and lowest position, side rails up x 3, call light and tray table within easy reach. Will endorse to manager hi.
--- NOTE | 2022-07-19 19:41 | NUR ---
RN Opening Notes Received pt in bed, awake, with family at bedside. AOx2. On RA and tolerating well. No SOB noted. No s/sx of respiratory distress noted. IV access in RFA #22G and RCW Permacath. IV is intact, patent, and flushing well. Safety precautions in place: bed in lowest, locked position, siderails upX2, and brakes on. Table and call light within reach. All needs met at this time.
[2022-07-19 20:00] VITALS: BP 106/57
--- NOTE | 2022-07-19 20:45 | NUR ---
RN Notes UNDERWEAR FINISHER attempted to take 2000 temperature orally and axillary but patient refused to let UNDERWEAR FINISHER take temperature. Family members also attempted to help but patient still refused.
[2022-07-19] MEDS: *INSULIN REGULAR(HUMULIN R)HUM 100 UNIT/ML VIAL SQ PRN (21:27)
--- NOTE | 2022-07-19 21:28 | NUR ---
RN Notes Tried to administer eye drops to patient but patient kept covering his left eye and making a fist. Explained to patient what eye drops were for. He said "it's fucking hot in here." Turned air conditioning on and tried to administer eye drops again but patient refused and said "there are voices in my head." Asked what the voices are saying and he said "they asked why it's so hot in here." Patient allowed accucheck but kept covering eye.
[2022-07-20 06:14] LABS: BASOPHILS % (AUTO) 0.5 % (0.0-2.0); EOSINOPHILS % (AUTO) 2.6 % (0.0-6.0); HEMATOCRIT 37 % (39-51); HEMOGLOBIN 12.4 g/dL (13.5-17.5); LYMPHOCYTES % (AUTO) 11.2 % (20.0-44.0); MEAN CORPUSCULAR HGB CONC 33 g/dl (31.0-36.0); MEAN CORPUSCULAR VOLUME 98 fL (80-96); MONOCYTES # (AUTO) 0.6 K/uL (0.1-1.30); NEUTROPHILS % (AUTO) 78.7 % (43.0-81.0); PLATELET COUNT (AUTO) 266 K/uL (150-450); RED BLOOD CELL COUNT(AUTO) 3.79 MIL/uL (4.5-6.0); WHITE BLOOD COUNT (AUTO) 8.9 K/uL (4.3-11.0)
[2022-07-20] MEDS: BLOOD SUGAR DIAGNOSTIC 1 EACH STRIP VI SCH ×4 (06:33→22:16)
[2022-07-20] MEDS: INSULIN REGULAR, HUMAN 100 UNIT/ML 3 ML VIAL SQ PRN ×3 (06:34→17:58)
[2022-07-20 06:44] LABS: CALCIUM, SERUM 9.1 mg/dL (8.5-10.1); MAGNESIUM 2.9 mg/dL (1.8-2.4); POTASSIUM 4.9 mmol/L (3.5-5.1)
--- NOTE | 2022-07-20 06:50 | NUR ---
RN Closing Notes Pt in bed, sitting upright, awake. AOx2. On RA and tolerating well. No SOB noted. No s/sx of respiratory distress noted. IV access in RFA #22G and RCW Permacath. IV is intact, patent, and flushing well. All orders carried out. All needs met. Pt kept clean and dry. Safety precautions in place: bed in lowest, locked position, siderails upX2, and brakes on. Table and call light within reach. Will endorse to oncoming shift for DENNIS.
[2022-07-20 07:11] LABS: PHOSPHORUS 5.9 mg/dL (2.5-4.9)
[2022-07-20 07:18] LABS: CREATININE 11.1 mg/dL (0.6-1.3)
--- NOTE | 2022-07-20 07:48 | NUR ---
MS RN OPENING NOTE (DAYSHIFT) Received pt in bed, awake. A/O x 2-3, with episodes of confusion, calm. On RA, tolerating well. IV access in the RFA #22g, SL, c/d/i. With permacath in the right upper chest, c/d/i. Maintained on NPO, scheduled for lumbar puncture today. Labs indicate need for hemodialysis this morning. Safety precautions in place: bed in locked and lowest position, side rails up x 3, call light and tray table within easy reach. Will continue to monitor and care for patient per hospitalist's POC.
[2022-07-20] MEDS: LEVOTHYROXINE SODIUM 75 MCG TABLET PO SCH (07:55)
[2022-07-20 08:00] VITALS: BP 116/54
[2022-07-20] MEDS: CALCIUM ACETATE 667 MG CAP/TAB PO SCH ×3 (08:00→17:59)
[2022-07-20] MEDS: ASPIRIN 81 MG TAB.CHEW PO SCH (08:37)
[2022-07-20] MEDS: CARVEDILOL 12.5 MG TABLET PO SCH ×2 (08:38→17:58)
[2022-07-20] MEDS: MAGNESIUM OXIDE 400 MG TABLET PO SCH (08:39)
[2022-07-20] MEDS: CALCIUM CARBONATE (1250) 500 MG TABLET PO SCH (08:39)
[2022-07-20] MEDS: FENOFIBRATE NANOCRYS (145 MG) 145 MG TABLET PO SCH (08:39)
[2022-07-20] MEDS: OFLOXACIN 0.3% OPHTH 5 ML BOTTLE LEFTEYE SCH ×4 (08:47→22:16)
[2022-07-20] MEDS: NEOMY SULF/BACITRAC ZN/POLY 15 GM TUBE TP SCH (08:48)
[2022-07-20] MEDS ORDERED: ALTEPLASE CATHFLO 2 MG/VIAL XX ONE (09:30)
[2022-07-20 11:02] LABS: CSF GLUCOSE 55 mg/dL (40-70); CSF PROTEIN 71.67 mg/dL (15-45)
[2022-07-20] MEDS: ACYCLOVIR IV 500 MG in IV D5W 100 ML IV SCH (14:47)
[2022-07-20] MEDS: LORAZEPAM INJ 2 MG/ML VIAL IM PRN (15:21)
[2022-07-20] MEDS ORDERED: GADOTERATE MEGLUMINE 5 MMOL/10 ML VIAL IV ONE (17:35)
[2022-07-20] MEDS: ATORVASTATIN 40 MG TABLET PO SCH (17:59)
--- NOTE | 2022-07-20 18:20 | NUR ---
RN NOTE- PT ATTEMPTED TO GET OOB UNASSISTED. FELL ON FLOOR, STRUCK HEAD AGAINST WALL. PT ON THINNERS. ALEX YOUNGBLOOD NOTIFIED. NEURO CHECK DONE. NO APPARENT INJURIES. CT HEAD STAT. MONITOR / BED ALARM BP- 128/64, HR- 81, RR-18, T- 97.0, SATS 97%RA.
--- NOTE | 2022-07-20 19:16 | NUR ---
MS RN CLOSING NOTE (DAYSHIFT) Patient resting in bed, awake, responsive verbally, oriented x [address] About to go to stat CT of head without contrast status post fall at about 18:30 hours. Luis Eduardo Bellamy DNP notified, voicemail message notifying patient's brotherReid of the fall. Patient currently denies pain, denies headache, denies dizziness. No signs of bruising as of yet. Patient in bed with all four bed side rails up and bed alarm on. Lumbar puncture completed this AM. MRI of the head completed this afternoon. Will endorse to shift superintendent caustic cresylate nurse for DENNIS.
--- NOTE | 2022-07-20 19:20 | NUR ---
MS RN OPENING NOTES RECEIVED PATIENT IN BED WITH BROTHER ON BEDSIDE. PATIENT IS AWAKE A/OX2 WITH EPISODES OF CONFUSION AND FORGETFULNESS. IV ACCESS ON RIGHT FOREARM #22 SALINE LOCK NOTED TO BE PATENT AND INTACT PATIENT WITH SLEEVE TO PREVENT PATIENT FROM TAKING OUT THE IV ACCESS. PATIENT WITH RIGHT CHEST PERMACATH NOTED TO BE INTACT. PATIENT ON ROOM AIR TOLERATING WELL. NO SOB, BREATHING EVENLY, NON LABORED. NOT IN DISTRESS NOTED. SAFETY MEASURE IN PLACED; BED LOCKED AND IN LOWEST POSITION, SIDE RAILS UP X3, HOB ELEVATED, CALL LIGHT WITHIN PATIENTS REACH.
[2022-07-20 20:00] VITALS: BP 104/51
--- NOTE | 2022-07-20 22:20 | NUR ---
RN NOTES PATIENT BLOOD SUGAR IS 167. PATIENT REFUSED INSULIN. OFFERED 3 TIMES.
[2022-07-21 05:59] LABS: BASOPHILS % (AUTO) 0.4 % (0.0-2.0); EOSINOPHILS % (AUTO) 1.1 % (0.0-6.0); HEMATOCRIT 35 % (39-51); HEMOGLOBIN 11.8 g/dL (13.5-17.5); LYMPHOCYTES % (AUTO) 10.2 % (20.0-44.0); MEAN CORPUSCULAR HGB CONC 33 g/dl (31.0-36.0); MEAN CORPUSCULAR VOLUME 98 fL (80-96); MONOCYTES # (AUTO) 0.8 K/uL (0.1-1.30); MONOCYTES % (AUTO) 8.3 % (2.0-12.0); NEUTROPHILS # (AUTO) 7.8 K/uL (1.8-8.9); PLATELET COUNT (AUTO) 253 K/uL (150-450); RED BLOOD CELL COUNT(AUTO) 3.61 MIL/uL (4.5-6.0); WHITE BLOOD COUNT (AUTO) 9.8 K/uL (4.3-11.0)
[2022-07-21 06:21] LABS: CALCIUM, SERUM 8.9 mg/dL (8.5-10.1); CREATININE 12.7 mg/dL (0.6-1.3)
[2022-07-21 06:22] LABS: PHOSPHORUS 5.4 mg/dL (2.5-4.9)
--- NOTE | 2022-07-21 06:37 | NUR ---
MS RN CLOSING NOTES PATIENT IN BED SLEEPING BUT EASILY AWAKEN WHEN CALLED BY NAME, BREATHING EVENLY AND UNLABORED. PATIENT A/OX2 WITH EPISODES OF CONFUSION AND FORGETFULNESS. IV ACCESS ON RIGHT FOREARM #22 SALINE LOCK NOTED TO BE PATENT AND INTACT PATIENT WITH SLEEVE TO PREVENT PATIENT FROM TAKING OUT THE IV ACCESS. PATIENT WITH RIGHT CHEST PERMACATH NOTED TO BE INTACT. PATIENT ON ROOM AIR TOLERATING WELL. NO SOB. NOT IN DISTRESS NOTED. ALL DUE MEDICATIONS ARE GIVEN ACCORDING TO ORDER. MADE SURE PATIENT IS CLEAN AND COMFORTABLE. ALL NEEDS ARE MET. SAFETY MEASURE IN PLACED; BED LOCKED AND IN LOWEST POSITION, SIDE RAILS UP X3, HOB ELEVATED, CALL LIGHT WITHIN PATIENTS REACH. WILL ENDORSE TO NEXT SHIFT NURSE FOR CONTINUITY OF CARE.
[2022-07-21] MEDS: BLOOD SUGAR DIAGNOSTIC 1 EACH STRIP VI SCH ×4 (07:35→22:40)
[2022-07-21] MEDS: LEVOTHYROXINE SODIUM 75 MCG TABLET PO SCH (07:46)
[2022-07-21] MEDS: CALCIUM ACETATE 667 MG CAP/TAB PO SCH ×3 (07:46→17:53)
[2022-07-21 08:00] VITALS: BP 98/63
--- NOTE | 2022-07-21 08:02 | NUR ---
MS RN OPENING NOTE (DAYSHIFT) Received pt in bed, awake, singing in Latvian the same chorus line repeatedlyoverand over again while removing his gown and bed sheets to expose himself fully naked in the bed. When greeted by nurse patient does not respond, ignoring nurse, continues to sing to himself, and does not follow any direction from nurse. Patient chewed his synthroid pill and swallowed it. On RA, tolerating well. IV access in the RFA #22g, SL, c/d/i. With permacath in the right upper chest, c/d/i. Plan to have hemodialysis this morning. Safety precautions in place: bed in locked and lowest position, side rails up x 3, call light and tray table within easy reach. Will continue to monitor and care for patient per hospitalist's POC.
--- NOTE | 2022-07-21 08:30 | NUR ---
MS RN UPDATE (DAYS) Asked for a 1:1 staff safety observer due to patient's confusion and was denied by charge nurse.
[2022-07-21] MEDS: CARVEDILOL 12.5 MG TABLET PO SCH ×2 (09:00→17:00)
--- NOTE | 2022-07-21 09:30 | NUR ---
MS RN UPDATE (DAYSHIFT) Patient started to pull at his peripheral IV catheter and perma-cath and scratch his left eyelid. Unable to get patient to understand his situation nor to follow staff's commands for safety. Put patient on soft bilateral wrist restraints for safety and notified hospitalist Luis Eduardo Bellamy DNP.
[2022-07-21] MEDS: NEOMY SULF/BACITRAC ZN/POLY 15 GM TUBE TP SCH (09:31)
[2022-07-21] MEDS: OFLOXACIN 0.3% OPHTH 5 ML BOTTLE LEFTEYE SCH ×4 (09:31→21:48)
[2022-07-21] MEDS: CALCIUM CARBONATE (1250) 500 MG TABLET PO SCH (09:40)
[2022-07-21] MEDS: MAGNESIUM OXIDE 400 MG TABLET PO SCH (09:40)
[2022-07-21] MEDS: ASPIRIN 81 MG TAB.CHEW PO SCH (09:40)
[2022-07-21] MEDS: FENOFIBRATE NANOCRYS (145 MG) 145 MG TABLET PO SCH (09:40)
[2022-07-21] MEDS: INSULIN REGULAR, HUMAN 100 UNIT/ML 3 ML VIAL SQ PRN ×2 (12:48→17:12)
[2022-07-21] MEDS: ACYCLOVIR IV 500 MG in IV D5W 100 ML IV SCH (13:48)
[2022-07-21 16:00] VITALS: BP 123/53
[2022-07-21] MEDS: ATORVASTATIN 40 MG TABLET PO SCH (17:53)
[2022-07-21] MEDS: ACETAMINOPHEN 325 MG TABLET PO PRN (17:59)
--- NOTE | 2022-07-21 19:35 | NUR ---
MS RN OPENING NOTES RECEIVED PATIENT IN BED WITH BROTHER ON BEDSIDE. PATIENT IS AWAKE A/OX2 WITH EPISODES OF CONFUSION AND FORGETFULNESS. PATIENT IS AGITATED. IV ACCESS ON RIGHT FOREARM #22 SALINE LOCK NOTED TO BE PATENT AND INTACT PATIENT WITH SLEEVE TO PREVENT PATIENT FROM TAKING OUT THE IV ACCESS. PATIENT WITH RIGHT CHEST PERMACATH NOTED TO BE INTACT. PATIENT ON ROOM AIR TOLERATING WELL. NO SOB, BREATHING EVENLY, NON LABORED. NOT IN DISTRESS NOTED. NOTED A NEW SKIN ISSUE ON LEFT EYE PER DAY SHIFT NURSE IT WAS SELF INFLICTED SCRATCHED BY THE PATIENT. SAFETY MEASURE IN PLACED; BED LOCKED AND IN LOWEST POSITION, SIDE RAILS UP X3, HOB ELEVATED, CALL LIGHT WITHIN PATIENTS REACH.
[2022-07-21 20:00] VITALS: BP 129/72
--- NOTE | 2022-07-22 04:20 | NUR ---
RN NOTE PATIENT IS HAVING DELUSION SAYING "THEY ARE ON THEIR WAY TO PICK ME UP IM GOING TO PRISON" REORIENTATION IS DONE. PATIENT IS ABLE TO STATE HIS NAME. ABLE TO STATE WHERE HE IS RIGHT NOW BUT STILL BELIEVE THAT HE IS GOING TO PRISON.
--- NOTE | 2022-07-22 05:32 | NUR ---
RN NOTE CLEANED THE PATIENT SACRUM. Z GUARD AND OPTIFOAM APPLIED. MADE SURE SACRAL AREA IS CLEAN AND INTACT.
[2022-07-22 06:25] LABS: BASOPHILS # (AUTO) 0.1 K/uL (0.0-0.2); BASOPHILS % (AUTO) 0.6 % (0.0-2.0); EOSINOPHILS % (AUTO) 1.9 % (0.0-6.0); HEMATOCRIT 40 % (39-51); MEAN CORPUSCULAR HGB CONC 32 g/dl (31.0-36.0); MEAN CORPUSCULAR VOLUME 99 fL (80-96); MONOCYTES # (AUTO) 0.7 K/uL (0.1-1.30); MONOCYTES % (AUTO) 7.4 % (2.0-12.0); NEUTROPHILS # (AUTO) 7.9 K/uL (1.8-8.9); NEUTROPHILS % (AUTO) 80.1 % (43.0-81.0); PLATELET COUNT (AUTO) 244 K/uL (150-450); RED BLOOD CELL COUNT(AUTO) 4.06 MIL/uL (4.5-6.0); WHITE BLOOD COUNT (AUTO) 9.9 K/uL (4.3-11.0)
--- NOTE | 2022-07-22 06:37 | NUR ---
MS RN CLOSING NOTES PATIENT IN BED AWAKE, A/OX2 WITH EPISODES OF CONFUSION AND FORGETFULNESS. PATIETN HAVE EPISODES OF HALLUCINATION SAYING "IM GOING TO DETENTION [place] [facility] ALOT OF PEOPLE THERE ALOT OF THEM SAYING THAT THEYLL COME PICK ME UP". IV ACCESS ON RIGHT FOREARM #22 SALINE LOCK NOTED TO BE PATENT AND INTACT PATIENT WITH SLEEVE TO PREVENT PATIENT FROM TAKING OUT THE IV ACCESS. PATIENT WITH RIGHT CHEST PERMACATH NOTED TO BE INTACT. PATIENT ON ROOM AIR TOLERATING WELL. NO SOB, BREATHING EVENLY, NON LABORED. NOT IN DISTRESS NOTED. ALL DUE MEDICATION IS GIVEN, MADE SURE PATIENT IS COMFORTABLE, KEPT PATIETN CLEAN. ALL NEEDS ARE MET. SAFETY MEASURE IN PLACED; BED LOCKED AND IN LOWEST POSITION, SIDE RAILS UP X3, HOB ELEVATED, CALL LIGHT WITHIN PATIENTS REACH. WILL ENDORSE TO NECT SHIFT NURSE FOR CONTINUITY OF CARE.
[2022-07-22 06:40] LABS: CALCIUM, SERUM 11.1 mg/dL (8.5-10.1); PHOSPHORUS 5.3 mg/dL (2.5-4.9); POTASSIUM 5.3 mmol/L (3.5-5.1)
[2022-07-22 06:42] LABS: CREATININE 9.7 mg/dL (0.6-1.3)
[2022-07-22 07:00] VITALS: BP 144/71
--- NOTE | 2022-07-22 07:10 | NUR ---
MS RN OPENING NOTES PATIENT IN BED AWAKE, A/OX2 WITH EPISODES OF CONFUSION AND FORGETFULNESS. PATIENT WAS OBSERVE TO BE SAYING SOMETHING BUT DECLINED TO REPEAT WHEN ASKED. PATIENT HAS IV ACCESS ON RIGHT FOREARM #22 SALINE LOCK NOTED TO BE PATENT AND INTACT. PATIENT WITH RIGHT CHEST PERMACATH NOTED TO BE INTACT. PATIENT ON ROOM AIR TOLERATING WELL. NO SOB, BREATHING EVENLY, NON LABORED. NOT IN DISTRESS NOTED. SAFETY MEASURES IN PLACED; BED LOCKED AND IN LOWEST POSITION, SIDE RAILS UP X3, HOB ELEVATED, CALL LIGHT WITHIN PATIENTS REACH. WILL CONTINUE TO MONITOR THE PATIENT.
[2022-07-22] MEDS: BLOOD SUGAR DIAGNOSTIC 1 EACH STRIP VI SCH ×4 (08:01→21:06)
[2022-07-22] MEDS: LEVOTHYROXINE SODIUM 75 MCG TABLET PO SCH (08:22)
[2022-07-22] MEDS: ASPIRIN 81 MG TAB.CHEW PO SCH (08:23)
[2022-07-22] MEDS: CALCIUM ACETATE 667 MG CAP/TAB PO SCH ×3 (08:23→17:18)
[2022-07-22] MEDS: FENOFIBRATE NANOCRYS (145 MG) 145 MG TABLET PO SCH (08:23)
[2022-07-22] MEDS: CARVEDILOL 12.5 MG TABLET PO SCH ×2 (08:24→17:00)
[2022-07-22] MEDS: MAGNESIUM OXIDE 400 MG TABLET PO SCH (08:24)
[2022-07-22] MEDS: CALCIUM CARBONATE (1250) 500 MG TABLET PO SCH (08:26)
[2022-07-22] MEDS: NEOMY SULF/BACITRAC ZN/POLY 15 GM TUBE TP SCH (08:30)
[2022-07-22] MEDS: OFLOXACIN 0.3% OPHTH 5 ML BOTTLE LEFTEYE SCH ×4 (09:01→21:01)
[2022-07-22] MEDS: INSULIN REGULAR, HUMAN 100 UNIT/ML 3 ML VIAL SQ PRN (11:25)
[2022-07-22] MEDS ORDERED: DEXAMETHASONE SOD PHOSPHATE 10 MG/ML VIAL IV ONE (13:00)
[2022-07-22] MEDS ORDERED: PAMIDRONATE IV ONE (14:00)
[2022-07-22] MEDS ORDERED: NS 0.9% IV ONE (14:00)
[2022-07-22] MEDS: ACYCLOVIR IV 500 MG in IV D5W 100 ML IV SCH (14:40)
[2022-07-22] MEDS ORDERED: PAMIDRONATE 30 MG in IV NS 0.9% 500 ML IV ONE (15:00)
[2022-07-22] MEDS ORDERED: PAMIDRONATE 90 MG in IV NS 0.9% 500 ML IV ONE (15:00)
--- NOTE | 2022-07-22 15:33 | NUR ---
Aredia 30 mg in IV 0.9 NS 250 ml/hr, once -- Cancelled by MD and replaced by same meds at 125 ml/hr. Pharmacy/Charge nurse aware.
[2022-07-22] MEDS: DEXAMETHASONE SOD PHOSPHATE 10 MG/ML VIAL IV SCH (16:31)
[2022-07-22 17:06] VITALS: BP 110/54
[2022-07-22] MEDS: ATORVASTATIN 40 MG TABLET PO SCH (17:18)
--- NOTE | 2022-07-22 19:13 | NUR ---
MS RN CLOSING NOTES PATIENT IN BED AWAKE, A/OX2 WITH EPISODES OF CONFUSION AND FORGETFULNESS. PATIENT'S BROTHER CAME IN TODAY AND ENTERTAIN THE PATIENT. PATIENT HAS IV ACCESS ON RIGHT FOREARM #22 SALINE LOCK NOTED TO BE PATENT AND INTACT. PATIENT WITH RIGHT CHEST PERMACATH NOTED TO BE INTACT. PATIENT ON ROOM AIR TOLERATING WELL. NO SOB, BREATHING EVENLY, NON LABORED. NOT IN DISTRESS NOTED. SAFETY MEASURES IN PLACED; BED LOCKED AND IN LOWEST POSITION, SIDE RAILS UP X3, HOB ELEVATED, CALL LIGHT WITHIN PATIENTS REACH. WILL BE ENDORSED TO AMUSEMENT RIDE OPERATOR NURSE FOR DENNIS.
--- NOTE | 2022-07-22 19:30 | NUR ---
MS RN OPENING NOTE RECEIVED PATIENT FROM AM NURSE; AWAKE WITH BROTHER AT BEDSIDE, A/O X 2 WITH EPISODES OF CONFUSION AND FORGETFULNESS; STABLE ON ROOM AIR TOLERATING WELL, BREATHING EVENLY AND NO S/S OF DISTRESS NOTED; WITH IV ACCESS ON RIGHT FOREARM G#22 SALINE LOCK PATENT AND INTACT; WITH RIGHT CHEST PERMACATH IN PLACE; SAFETY MEASURES IN PLACE; BED LOCKED AND IN LOWEST POSITION, SIDE RAILS UP X3, HOB ELEVATED, CALL LIGHT WITHIN REACH; WILL CONTINUE TO MONITOR THROUGHOUT SHIFT
[2022-07-22 20:00] VITALS: BP 130/63
[2022-07-22] MEDS: *INSULIN REGULAR(HUMULIN R)HUM 100 UNIT/ML VIAL SQ PRN (21:10)
[2022-07-23 06:27] LABS: BASOPHILS % (AUTO) 0.1 % (0.0-2.0); HEMATOCRIT 38 % (39-51); HEMOGLOBIN 12.3 g/dL (13.5-17.5); LYMPHOCYTES # (AUTO) 0.6 K/uL (0.8-4.8); LYMPHOCYTES % (AUTO) 7.4 % (20.0-44.0); MEAN CORPUSCULAR HGB CONC 33 g/dl (31.0-36.0); MEAN CORPUSCULAR VOLUME 99 fL (80-96); MONOCYTES # (AUTO) 0.1 K/uL (0.1-1.30); MONOCYTES % (AUTO) 1.4 % (2.0-12.0); NEUTROPHILS # (AUTO) 7.6 K/uL (1.8-8.9); NEUTROPHILS % (AUTO) 91.1 % (43.0-81.0); PLATELET COUNT (AUTO) 241 K/uL (150-450); RED BLOOD CELL COUNT(AUTO) 3.81 MIL/uL (4.5-6.0); WHITE BLOOD COUNT (AUTO) 8.4 K/uL (4.3-11.0)
[2022-07-23] MEDS: BLOOD SUGAR DIAGNOSTIC 1 EACH STRIP VI SCH ×4 (06:41→21:51)
--- NOTE | 2022-07-23 06:55 | NUR ---
MS RN CLOSING NOTE PATIENT IN BED, A/O X 2-3 WITH EPISODES OF CONFUSION AND FORGETFULNESS; STABLE ON ROOM AIR, TOLERATING WELL, BREATHING EVENLY AND NO S/S OF DISTRESS NOTED; WITH IV ACCESS ON RIGHT FOREARM G#22 SALINE LOCK, PATENT AND INTACT; WITH RIGHT CHEST PERMACATH IN PLACE; ADMINISTERED MEDICATIONS PRESCRIBED, PATIENT'S NEEDS ATTENDED; MONITORED PATIENT ACCORDINGLY; SAFETY MEASURES IN PLACE; BED LOCKED AND IN LOWEST POSITION, SIDE RAILS UP X3, HOB ELEVATED, CALL LIGHT WITHIN REACH; WILL ENDORSE TO AM NURSE FOR DENNIS.
[2022-07-23 07:00] VITALS: BP 128/61
[2022-07-23 07:21] LABS: CALCIUM, SERUM 10.2 mg/dL (8.5-10.1); MAGNESIUM 2.8 mg/dL (1.8-2.4); PHOSPHORUS 4.9 mg/dL (2.5-4.9); POTASSIUM 5.2 mmol/L (3.5-5.1)
--- NOTE | 2022-07-23 07:31 | NUR ---
MS RN OPENING NOTES Received pt in bed, awake. A/O x 2-3, with episode of confusion, calm. On RA, tolerating well. IV access in the RFA #22g, SL, c/d/i. With permicath in the right upper chest, c/d/i. Safety precautions in place: bed in locked and lowest position, side rails up x 3, call light and tray table within easy reach. Will continue to monitor.
[2022-07-23 07:35] LABS: CREATININE 7.9 mg/dL (0.6-1.3)
[2022-07-23] MEDS: CALCIUM ACETATE 667 MG CAP/TAB PO SCH ×3 (08:06→17:44)
[2022-07-23] MEDS: LEVOTHYROXINE SODIUM 75 MCG TABLET PO SCH (08:06)
[2022-07-23] MEDS: ASPIRIN 81 MG TAB.CHEW PO SCH (09:13)
[2022-07-23] MEDS: MAGNESIUM OXIDE 400 MG TABLET PO SCH (09:13)
[2022-07-23] MEDS: FENOFIBRATE NANOCRYS (145 MG) 145 MG TABLET PO SCH (09:13)
[2022-07-23] MEDS: CALCIUM CARBONATE (1250) 500 MG TABLET PO SCH (09:13)
[2022-07-23] MEDS: DEXAMETHASONE SOD PHOSPHATE 10 MG/ML VIAL IV SCH ×2 (09:13→17:31)
[2022-07-23] MEDS: CARVEDILOL 12.5 MG TABLET PO SCH ×2 (09:14→17:32)
[2022-07-23] MEDS: NEOMY SULF/BACITRAC ZN/POLY 15 GM TUBE TP SCH (09:27)
[2022-07-23] MEDS: OFLOXACIN 0.3% OPHTH 5 ML BOTTLE LEFTEYE SCH ×4 (09:27→21:42)
[2022-07-23] MEDS: INSULIN REGULAR, HUMAN 100 UNIT/ML 3 ML VIAL SQ PRN ×2 (12:29→17:31)
[2022-07-23] MEDS: ACYCLOVIR IV 500 MG in IV D5W 100 ML IV SCH (14:48)
[2022-07-23] MEDS: ATORVASTATIN 40 MG TABLET PO SCH (17:44)
--- NOTE | 2022-07-23 18:59 | NUR ---
MS RN CLOSING NOTES Pt resting in bed, with relative at bedside. A/O x 2-3, with episode of confusion, calm. On RA, tolerating well. IV access in the RFA #22g, SL, c/d/i. With permicath in the right upper chest, c/d/i. Needs attended. Safety precautions in place: bed in locked and lowest position, side rails up x 3, call light and tray table within easy reach. Will endorse kale to security shift manager.
[2022-07-23 20:00] VITALS: BP 117/62
[2022-07-23] MEDS: *INSULIN REGULAR(HUMULIN R)HUM 100 UNIT/ML VIAL SQ PRN (21:53)
--- NOTE | 2022-07-24 04:33 | NUR ---
closing notes : beginning of the shift His Brother was at his bedside When I asked him where is your Brother (after visiting hours) he stated "he had to go home" he did ask me what day this was and the date.He made the request to have the TV turned off, he didn't understand the controller when offered juice will drink indepentently swallow w/o problem bedalarm used for his safety and his room is near the nursing station
[2022-07-24] MEDS: BLOOD SUGAR DIAGNOSTIC 1 EACH STRIP VI SCH ×2 (06:14→11:56)
--- NOTE | 2022-07-24 07:00 | NUR ---
MS RN OPENING NOTES PATIENT IN BED ASLEEP BUT WAKES UP EASILY, A/OX2 WITH EPISODES OF CONFUSION AND FORGETFULNESS. PATIENT HAS IV ACCESS ON RIGHT FOREARM #22 SL C/D/I. PATIENT WITH RIGHT CHEST PERMACATH C/D/I. ON ROOM AIR TOLERATING WELL. NO SOB, BREATHING EVENLY, NON LABORED. NOT IN DISTRESS NOTED. SAFETY MEASURES IN PLACED; BED LOCKED AND IN LOWEST POSITION, SIDE RAILS UP X3, HOB ELEVATED, CALL LIGHT WITHIN PATIENTS REACH. WILL CONTINUE TO MONITOR THE PATIENT FOR DENNIS.
[2022-07-24] MEDS: LEVOTHYROXINE SODIUM 75 MCG TABLET PO SCH (08:08)
[2022-07-24] MEDS: CALCIUM CARBONATE (1250) 500 MG TABLET PO SCH (08:08)
[2022-07-24] MEDS: CALCIUM ACETATE 667 MG CAP/TAB PO SCH ×2 (08:09→13:06)
[2022-07-24] MEDS: DEXAMETHASONE SOD PHOSPHATE 10 MG/ML VIAL IV SCH (08:11)
[2022-07-24] MEDS: ASPIRIN 81 MG TAB.CHEW PO SCH (08:11)
[2022-07-24] MEDS: FENOFIBRATE NANOCRYS (145 MG) 145 MG TABLET PO SCH (08:11)
[2022-07-24] MEDS: MAGNESIUM OXIDE 400 MG TABLET PO SCH (08:11)
[2022-07-24] MEDS: OFLOXACIN 0.3% OPHTH 5 ML BOTTLE LEFTEYE SCH ×2 (09:10→13:07)
[2022-07-24] MEDS: CARVEDILOL 12.5 MG TABLET PO SCH (09:11)
[2022-07-24] MEDS: NEOMY SULF/BACITRAC ZN/POLY 15 GM TUBE TP SCH (09:12)
[2022-07-24 09:27] VITALS: BP 120/63
[2022-07-24 09:37] LABS: BASOPHILS % (AUTO) 0.4 % (0.0-2.0); EOSINOPHILS % (AUTO) 1.1 % (0.0-6.0); HEMATOCRIT 38 % (39-51); HEMOGLOBIN 12.4 g/dL (13.5-17.5); LYMPHOCYTES # (AUTO) 1.1 K/uL (0.8-4.8); LYMPHOCYTES % (AUTO) 10.4 % (20.0-44.0); MEAN CORPUSCULAR HGB CONC 33 g/dl (31.0-36.0); MEAN CORPUSCULAR VOLUME 99 fL (80-96); MONOCYTES # (AUTO) 0.5 K/uL (0.1-1.30); MONOCYTES % (AUTO) 4.6 % (2.0-12.0); NEUTROPHILS # (AUTO) 8.8 K/uL (1.8-8.9); NEUTROPHILS % (AUTO) 83.5 % (43.0-81.0); PLATELET COUNT (AUTO) 273 K/uL (150-450); RED BLOOD CELL COUNT(AUTO) 3.83 MIL/uL (4.5-6.0); WHITE BLOOD COUNT (AUTO) 10.6 K/uL (4.3-11.0)
[2022-07-24 09:52] LABS: MAGNESIUM 3.3 mg/dL (1.8-2.4); PHOSPHORUS 3.7 mg/dL (2.5-4.9); POTASSIUM 4.8 mmol/L (3.5-5.1)
[2022-07-24 10:26] LABS: CREATININE 10.8 mg/dL (0.6-1.3)
[2022-07-24] MEDS: INSULIN REGULAR, HUMAN 100 UNIT/ML 3 ML VIAL SQ PRN (11:56)
[2022-07-24] MEDS ORDERED: OFLO5DRO6 LEFTEYE (12:22)
[2022-07-24] MEDS ORDERED: PRED20TA PO (12:22)
[2022-07-24] MEDS: ACYCLOVIR IV 500 MG in IV D5W 100 ML IV SCH (14:00)
--- NOTE | 2022-07-24 15:00 | NUR ---
MS REINFORCING STEEL WORKER WIRE MESH NOTES DISCHARGE PATIENT TO [facility]. PATIENT WAS A/OX2 WITH EPISODES OF CONFUSION AND FORGETFULNESS. PATIENT'S IV ACCESS ON RIGHT FOREARM #22 REMOVED WHILE RIGHT CHEST PERMACATH RETAINED FOR HD ACCESS, C/D/I. PATIENT ON ROOM AIR TOLERATING WELL WHEN DISCHARGED. NO SOB, BREATHING EVENLY, NON LABORED. NOT IN DISTRESS NOTED. ALL BELONGINGS ACCOUNTED FOR, BROTHER ON BEDSIDE. DISCHARGE INSTRUCTIONS DISCUSSED WITH THE PATIENT, HIS BROTHER AND customer sales consultant WHO PICKED UP THE PATIENT. DISCHARGE INSTRUCTIONS GIVEN BOTH VERBALLY AND IN WRITING. PATIENT LEFT THE UNIT AT 1430, CHARGE NURSE AWARE. SAFETY PROTOCOL IN PLACED.
== END 2022-07-24 14:32 | DRG 97 ==
LOC: ER 13:11 → TELE 16:30 → MED 07-13 16:01
PROVIDERS: ADMIT Internal Medicine; ATTEND Nurse Practitioner Acute Care
PROC: 5A1D70Z Performance of Urinary Filtration, Intermittent, Less than 6 Hours Per Day (ICD-10-PCS; principal; 2022-07-11)
PROC: 009U3ZX Drainage of Spinal Canal, Percutaneous Approach, Diagnostic (ICD-10-PCS; 2022-07-21)
DX: B10.01 Human herpesvirus 6 encephalitis (principal); G93.41 Metabolic encephalopathy; I21.A1 Myocardial infarction type 2; N18.6 End stage renal disease; D68.59 Other primary thrombophilia; I13.2 Hypertensive heart and chronic kidney disease with heart failure and with stage 5 chronic kidney disease, or end stage renal disease; B02.30 Zoster ocular disease, unspecified; E87.1 Hypo-osmolality and hyponatremia; E87.70 Fluid overload, unspecified; Z99.2 Dependence on renal dialysis; I50.9 Heart failure, unspecified; E03.9 Hypothyroidism, unspecified; E11.22 Type 2 diabetes mellitus with diabetic chronic kidney disease; E83.52 Hypercalcemia; E87.5 Hyperkalemia; I48.91 Unspecified atrial fibrillation; Z20.822 Contact with and (suspected) exposure to COVID-19; Z79.4 Long term (current) use of insulin; Z79.82 Long term (current) use of aspirin; E66.9 Obesity, unspecified; Z95.0 Presence of cardiac pacemaker; Z91.81 History of falling
CPT/HCPCS: 36415; 70450-TC; 70553-TC; 71045-TC; 80048-TC; 80076-TC; 82140-TC; 82962-TC; 83735-TC; 84100-TC; 84484-TC; 85025-TC; 85610-TC; 85730-TC; 86592; 86694; 86706; 87081-TC; 87340; 89051-TC; 90935-TC; 93307-TC; 97112-TC; 97530-TC; A4216; A4217; A4223; A9575; G0378; J0133; J1100; J1815; J2060; J2405; J2430; J2997; J7030; J7040; J7060; P9047

== ENCOUNTER 2022-08-16 19:22 | Inpatient (IN) | payer MEDICARE, OTHER ==
[~2022-08-16] VITALS: Ht 170.2 cm; Wt 83.9 kg
[~2022-08-16 19:22] MED LIST changes: +OFLO5DRO6 LEFTEYE; +PRED20TA PO
--- NOTE | 2022-08-16 19:30 | NUR ---
PT BIB WITH COMPLAINTS OF LT SIDE FACE NUMBNESS STARTED 2WKS AGO, SENT BY EYE MD FOR CT/MRI.
--- NOTE | 2022-08-16 21:08 | NUR ---
COVID ANTIGEN AND MRSA SWAB COLLECTED AND SENT TO LAB.
--- NOTE | 2022-08-16 21:30 | NUR ---
IV STARTED AT R HAND #20G, BLOOD DRAWN AND SENT ON LAB.
[2022-08-16 21:32] LABS: BASOPHILS # (AUTO) 0.2 K/uL (0.0-0.2); BASOPHILS % (AUTO) 4.6 % (0.0-2.0); EOSINOPHILS % (AUTO) 6.9 % (0.0-6.0); HEMATOCRIT 39 % (39-51); HEMOGLOBIN 12.1 g/dL (13.5-17.5); LYMPHOCYTES # (AUTO) 0.9 K/uL (0.8-4.8); LYMPHOCYTES % (AUTO) 17.6 % (20.0-44.0); MEAN CORPUSCULAR HGB CONC 31 g/dl (31.0-36.0); MEAN CORPUSCULAR VOLUME 103 fL (80-96); MONOCYTES # (AUTO) 0.4 K/uL (0.1-1.30); MONOCYTES % (AUTO) 6.8 % (2.0-12.0); NEUTROPHILS # (AUTO) 3.4 K/uL (1.8-8.9); NEUTROPHILS % (AUTO) 64.1 % (43.0-81.0); PLATELET COUNT (AUTO) 292 K/uL (150-450); RED BLOOD CELL COUNT(AUTO) 3.78 MIL/uL (4.5-6.0); WHITE BLOOD COUNT (AUTO) 5.2 K/uL (4.3-11.0)
[2022-08-16 21:45] LABS: CALCIUM, SERUM 8.8 mg/dL (8.5-10.1); CREATININE 6.7 mg/dL (0.6-1.3); POTASSIUM 5.5 mmol/L (3.5-5.1)
--- NOTE | 2022-08-16 22:08 | NUR ---
RM 326-2
--- NOTE | 2022-08-16 22:16 | NUR ---
REPORT GIVEN TO KEN Glass MEDICAL DOSIMETRIST FOR DENNIS
--- NOTE | 2022-08-16 22:30 | NUR ---
Admission Notes Pt arrived via gurney at approximately 2220. AOx4, able to make needs known. On RA and tolerating well. No SOB noted. No s/sx of respiratory distress noted. IV access in R Hand #20G and RCW Permacath and HERB AV Fistula. Safety precautions in place: bed in lowest, locked position, siderails upX2, and brakes on. Table and call light within reach. All needs met at this time.
--- NOTE | 2022-08-16 22:30 | NUR ---
PT TRANSFERRED TO [facility] ON STABLE CONDITION
[2022-08-16] MEDS ORDERED: ONDANSETRON HCL/PF 4 MG/2 ML VIAL IVP PRN (23:30)
[2022-08-16] MEDS ORDERED: ACETAMINOPHEN 325 MG TABLET PO PRN (23:30)
[2022-08-16] MEDS ORDERED: ZOLPIDEM TARTRATE 5 MG TABLET PO PRN (23:30)
[2022-08-16] MEDS ORDERED: Z GUARD REMEDY 4 OZ OINT TP PRN (23:30)
[2022-08-16] MEDS ORDERED: SODIUM POLYSTYRENE SULFONATE 15 G/60 ML BOTTLE PO ONE (23:30)
[2022-08-16] MEDS ORDERED: MAG HYDROX/AL HYDROX/SIMETH 30 ML UDC PO PRN (23:30)
[2022-08-16] MEDS ORDERED: MAGNESIUM HYDROXIDE 30 ML UDC PO PRN (23:30)
[2022-08-17] MEDS ORDERED: NITROGLYCERIN 0.4 MG/TAB BOTTLE SL PRN
[2022-08-17] MEDS ORDERED: *INSULIN REGULAR(HUMULIN R)HUM 100 UNIT/ML VIAL SQ PRN
[2022-08-17] MEDS ORDERED: FUROSEMIDE 40 MG TABLET PO PRN
[2022-08-17] MEDS ORDERED: DEXTROSE 50%-WATER 50 ML DISP.SYRIN IV PRN
[2022-08-17 00:04] VITALS: BP 105/66
[2022-08-17] MEDS ORDERED: ALBUTEROL FS 2.5 MG/3 ML VIAL.NEB NEB PRN (01:00)
[2022-08-17] MEDS ORDERED: SODIUM POLYSTYRENE SULFONATE 15 G/60 ML BOTTLE PO ONE (04:00)
[2022-08-17 06:24] LABS: BASOPHILS # (AUTO) 0.1 K/uL (0.0-0.2); BASOPHILS % (AUTO) 1.4 % (0.0-2.0); EOSINOPHILS % (AUTO) 7.7 % (0.0-6.0); HEMATOCRIT 37 % (39-51); HEMOGLOBIN 11.8 g/dL (13.5-17.5); LYMPHOCYTES # (AUTO) 1.2 K/uL (0.8-4.8); LYMPHOCYTES % (AUTO) 26.3 % (20.0-44.0); MEAN CORPUSCULAR HGB CONC 32 g/dl (31.0-36.0); MEAN CORPUSCULAR VOLUME 102 fL (80-96); MONOCYTES # (AUTO) 0.4 K/uL (0.1-1.30); MONOCYTES % (AUTO) 7.9 % (2.0-12.0); NEUTROPHILS # (AUTO) 2.7 K/uL (1.8-8.9); NEUTROPHILS % (AUTO) 56.7 % (43.0-81.0); PLATELET COUNT (AUTO) 243 K/uL (150-450); RED BLOOD CELL COUNT(AUTO) 3.59 MIL/uL (4.5-6.0); WHITE BLOOD COUNT (AUTO) 4.7 K/uL (4.3-11.0)
[2022-08-17 06:51] LABS: CALCIUM, SERUM 8.1 mg/dL (8.5-10.1); CREATININE 7.1 mg/dL (0.6-1.3); MAGNESIUM 2.7 mg/dL (1.8-2.4); PHOSPHORUS 5.3 mg/dL (2.5-4.9); POTASSIUM 4.1 mmol/L (3.5-5.1)
--- NOTE | 2022-08-17 06:58 | NUR ---
RN Closing Pt in bed, awake, watching TV. AOx4, able to make needs known. On RA and tolerating well. No SOB noted. No s/sx of respiratory distress noted. IV access in R Hand #20G and RCW Permacath and HERB AV Fistula. All orders carried out. All needs met. Pt kept clean and dry. Safety precautions in place: bed in lowest, locked position, siderails upX2, and brakes on. Table and call light within reach. Will endorse to oncoming shift for DENNIS.
[2022-08-17 07:00] VITALS: BP 119/66
--- NOTE | 2022-08-17 07:23 | NUR ---
RN OPENING NOTE RECEIVED PATIENT IN BED, AWAKE, A/O X4, VERBALLY RESPONSIVE AND ABLE TO MAKE NEEDS KNOWN. ON ROOM AIR, NO SOB NOTED, BREATHING EVEN AND UNLABORED. NOTED WITH RIGHT CHEST WALL PERMACATH, INTACT WITH DRESSING C/D/I. IV ACCESS ON RIGHT HAND #20G, INTACT AND PATENT, SALINE LOCKED. SAFETY MEASURE IN PLACE. BED IN LOW AND LOCKED POSITION, SIDE RAILS UP X2, CALL LIGHT PLACED WITHIN EASY REACH, WILL CONTINUE TO MONITOR PATIENT.
[2022-08-17] MEDS: BLOOD SUGAR DIAGNOSTIC 1 EACH STRIP VI SCH ×4 (07:36→21:04)
[2022-08-17] MEDS: LEVOTHYROXINE SODIUM 75 MCG TABLET PO SCH (07:50)
[2022-08-17] MEDS: CALCIUM ACETATE 667 MG CAP/TAB PO SCH ×3 (07:50→17:05)
[2022-08-17] MEDS: CHOLECALCIFEROL 1,000 UNIT TABLET (VIT D3) PO SCH (08:34)
[2022-08-17] MEDS: MULTIVIT W/MINERALS 1 TAB TABLET PO SCH (08:34)
[2022-08-17] MEDS: FENOFIBRATE NANOCRYS (145 MG) 145 MG TABLET PO SCH (08:34)
[2022-08-17] MEDS: ZINC SULFATE 220 MG CAPSULE PO SCH (08:34)
[2022-08-17] MEDS: CALCIUM CARBONATE (1250) 500 MG TABLET PO SCH (08:34)
[2022-08-17] MEDS: MAGNESIUM OXIDE 400 MG TABLET PO SCH (08:34)
[2022-08-17] MEDS: ASPIRIN 81 MG TAB.CHEW PO SCH (08:34)
[2022-08-17] MEDS: SPIRONOLACTONE 25 MG TABLET PO SCH (08:34)
[2022-08-17] MEDS: CARVEDILOL 12.5 MG TABLET PO SCH ×2 (08:35→17:05)
[2022-08-17] MEDS ORDERED: Medication Not On Formulary EA (Icosapent Ethyl (Vascepa) 2 GM) PO SCH (09:00)
--- NOTE | 2022-08-17 10:20 | NUR ---
RN NOTE PATIENT CURRENTLY HAVING HEMODIALYSIS.
--- NOTE | 2022-08-17 10:20 | NUR ---
RN NOTE SAWMILL RELIEF WORKER INFORMED ME THAT MRA CAN'T BE DONE BECAUSE PATIENT HAS A PACEMAKER. INFORMED DR. POLLARD WITH ORDER TO DO CTA BRAIN INSTEAD, ORDER CARRIED OUT. PATIENT MADE AWARE.
[2022-08-17] MEDS: INSULIN REGULAR, HUMAN 100 UNIT/ML 3 ML VIAL SQ PRN (11:33)
[2022-08-17] MEDS ORDERED: NEPRO VAN 237 ML CAN PO PRN ×2 (12:30)
--- NOTE | 2022-08-17 13:20 | NUR ---
RN NOTE HD FINISHED. PATIENT TOLERATED PROCEDURE WELL. 2 LITERS OF FLUIDS REMOVED.
--- NOTE | 2022-08-17 14:02 | NUR ---
RN NOTE CALLED DR. YOVANNY GAO'S OFFICE C/O FATUMA TO VERIFY IF IT'S OK FOR PATIENT TO GO THROUGH WITH CTA BRAIN, AWAIT CALL BACK.
--- NOTE | 2022-08-17 14:30 | NUR ---
RN NOTE RECEIVED A CALL FROM DR. GOA'S OFFICE, SPOKE WITH DAMON. PER FATUMA GAO SAID IT'S OK FOR PATIENT TO GO THROUGH WITH CTA BRAIN AND NO EXTRA DIALYSIS TREATMENT IS NEEDED.
[2022-08-17 16:35] VITALS: BP 126/61
--- NOTE | 2022-08-17 18:53 | NUR ---
RN CLOSING NOTE PATIENT IN BED, AWAKE, A/O X4, VERBALLY RESPONSIVE AND ABLE TO MAKE NEEDS KNOWN. BROTHER AT BEDSIDE. REMAINS STABLE ON ROOM AIR, NO SOB NOTED, BREATHING EVEN AND UNLABORED. WITH RIGHT CHEST WALL PERMACATH WITH DRESSING C/D/I. WITH IV ACCESS ON RIGHT HAND #20G, INTACT AND PATENT, SALINE LOCKED. ALL DUE MEDS GIVEN. SAFETY MEASURE MAINTAINED. BED IN LOW AND LOCKED POSITION, SIDE RAILS UP X2, CALL LIGHT PLACED WITHIN EASY REACH, WILL ENDORSE TO NEXT SHIFT FOR CONTINUITY OF CARE.
--- NOTE | 2022-08-17 19:30 | NUR ---
MS RN OPENING NOTE RECEIVED PATIENT SITTING IN BED, AWAKE, ALERT AND ORIENTED X4. ABLE TO COMMUNICATE NEEDS WITH THE STAFFS. AFEBRILE AND NOT IN ANY FORM OF ACUTE DISTRESS. BREATHING EVEN AND NON LABORED. S/P HEMODIALYSIS, MONITORED FOR ANY ADVERSE REACTION. WITH IV ACCESS ON R HAND 20G-SL. SAFETY MEASURES IN PLACE. KEPT BED IN LOCKED AND IN LOW POSITION. SIDE RAILS UP X2. ADVISED TO USE THE CALL LIGHT WHEN IN NEED OF ASSISTANCE.
[2022-08-17 20:00] VITALS: BP 96/50
[2022-08-17] MEDS ORDERED: ATORVASTATIN 40 MG TABLET PO SCH (22:00)
--- NOTE | 2022-08-18 06:30 | NUR ---
MS RN CLOSING NOTE PATIENT IN BED, ASLEEP BUT EASY TO AROUSE AND RESPONSIVE. ALERT AND ORIENTED X4. ABLE TO MAKE NEEDS KNOWN. AFEBRILE AND NOT IN ANY FORM OF ACUTE DISTRESS. BREATHING EVEN AND NON LABORED. S/P HEMODIALYSIS YESTERDAY, NO ADVERSE REACTION NOTED THROUGHOUT THE SHIFT. WITH IV ACCESS ON R HAND 20G-SL. MONITORED FOR ANY S/SX. OF HYPO/HYPERGLYCEMIA. MEDICATED ORDERED. SAFETY MEASURES IN PLACE. KEPT BED IN LOCKED AND IN LOW POSITION. SIDE RAILS UP X2. ADVISED TO USE THE CALL LIGHT WHEN IN NEED OF ASSISTANCE. ALL NURSING NEEDS ATTENDED. ENDORSED TO INCOMING SHIFT FOR CONTINUITY OF CARE.
[2022-08-18] MEDS: BLOOD SUGAR DIAGNOSTIC 1 EACH STRIP VI SCH ×2 (06:32→11:49)
--- NOTE | 2022-08-18 07:30 | NUR ---
MS RN OPENING NOTES: RECEIVED PATIENT IN BED, ASLEEP, EASILY ROUSED AND, A/O X4. ABLE TO MAKE NEEDS KNOWN. ON RA WITH NO S/S OF SOB. DENIES PAIN AT THIS TIME. IV ACCESS ON R HAND 20G-SL. SAFETY MEASURES IN PLACE. KEPT BED IN LOCKED AND IN LOW POSITION, CALL LIGHT, TABLE WITHIN EASY REACH, WILL CONT WITH PLAN OF CARE DURING SHIFT.
[2022-08-18 07:44] LABS: BASOPHILS % (AUTO) 1.2 % (0.0-2.0); EOSINOPHILS % (AUTO) 8.6 % (0.0-6.0); HEMATOCRIT 33 % (39-51); HEMOGLOBIN 10.6 g/dL (13.5-17.5); LYMPHOCYTES # (AUTO) 1.2 K/uL (0.8-4.8); LYMPHOCYTES % (AUTO) 28.6 % (20.0-44.0); MEAN CORPUSCULAR HGB CONC 32 g/dl (31.0-36.0); MEAN CORPUSCULAR VOLUME 102 fL (80-96); MONOCYTES # (AUTO) 0.3 K/uL (0.1-1.30); MONOCYTES % (AUTO) 7.4 % (2.0-12.0); NEUTROPHILS # (AUTO) 2.3 K/uL (1.8-8.9); NEUTROPHILS % (AUTO) 54.2 % (43.0-81.0); PLATELET COUNT (AUTO) 215 K/uL (150-450); RED BLOOD CELL COUNT(AUTO) 3.22 MIL/uL (4.5-6.0); WHITE BLOOD COUNT (AUTO) 4.2 K/uL (4.3-11.0)
[2022-08-18 08:02] LABS: CALCIUM, SERUM 8.7 mg/dL (8.5-10.1); CREATININE 5.7 mg/dL (0.6-1.3); POTASSIUM 4.1 mmol/L (3.5-5.1)
[2022-08-18 08:07] VITALS: BP 124/64
[2022-08-18] MEDS: MAGNESIUM OXIDE 400 MG TABLET PO SCH (08:10)
[2022-08-18] MEDS: CHOLECALCIFEROL 1,000 UNIT TABLET (VIT D3) PO SCH (08:10)
[2022-08-18] MEDS: MULTIVIT W/MINERALS 1 TAB TABLET PO SCH (08:11)
[2022-08-18] MEDS: ASPIRIN 81 MG TAB.CHEW PO SCH (08:11)
[2022-08-18] MEDS: ZINC SULFATE 220 MG CAPSULE PO SCH (08:11)
[2022-08-18] MEDS: SPIRONOLACTONE 25 MG TABLET PO SCH (08:11)
[2022-08-18] MEDS: CALCIUM ACETATE 667 MG CAP/TAB PO SCH ×2 (08:11→13:52)
[2022-08-18] MEDS: CARVEDILOL 12.5 MG TABLET PO SCH (08:11)
[2022-08-18] MEDS: LEVOTHYROXINE SODIUM 75 MCG TABLET PO SCH (08:11)
[2022-08-18] MEDS: CALCIUM CARBONATE (1250) 500 MG TABLET PO SCH (08:12)
[2022-08-18] MEDS: FENOFIBRATE NANOCRYS (145 MG) 145 MG TABLET PO SCH (08:12)
--- NOTE | 2022-08-18 10:00 | NUR ---
RN NOTES- NEURO PER NEURO, PT WILL NEED CT HEAD BEFORE DC, INFORMED HOSPITALIST, DC IS ON HOLD, CM AWARE.
[2022-08-18] MEDS: INSULIN REGULAR, HUMAN 100 UNIT/ML 3 ML VIAL SQ PRN (11:47)
[2022-08-18] MEDS ORDERED: CT SWABBABLE VALVE TRANS SET 1 EA INFUS.SET MC ONE (11:54)
[2022-08-18] MEDS ORDERED: IOHEXOL-350 100 ML VIAL IV ONE (11:54)
[2022-08-18] MEDS ORDERED: IV NS 0.9% 250 ML IV ONE (11:54)
--- NOTE | 2022-08-18 11:55 | NUR ---
RN NOTES - CT PT LEFT UNIT FOR CT, TRANSPORTED VIA WHEELCHAIR BY MERI
--- NOTE | 2022-08-18 12:31 | NUR ---
RN NOTES; RN CALLED DR GAO'S OFFICE FOR HD ORDER POST CT CONTRAST, LEFT MSG TO ALLI, CLINIC STAFF TO CALL BACK [facility]WEST
--- NOTE | 2022-08-18 14:58 | NUR ---
RN NOTES: CALL TO 'S TECHNICAL CUSTOMER SUPPORT SPECIALIST CALLED SIMA'S OFFICE FOR 2ND TIME. SPOKE TO ALLI, LEFT MSG FOR PT, PENDING REPLY, CHANNEL LIP STIFFENER INSOLES AWARE.
--- NOTE | 2022-08-18 15:30 | NUR ---
RN NOTES; IRVIN PT SIGNED RELEASE OF INFORMATION, FAXED CT RESULT TO SPOTTER OFFICE, DR BUTTERFIELD PER PT REQUEST, FAX # [phone]. FAX CONFIRMATION ATTACHED TO CHART.
[2022-08-18 15:31] VITALS: BP 101/52
--- NOTE | 2022-08-18 16:27 | NUR ---
RN NOTES: MADE HOSPITALIST AWARE PT IS OK TO DC PER INFLATED PAD BUFFER AND WILL CONTINUE HD WITH O/P HD CLINIC.
--- NOTE | 2022-08-18 16:58 | NUR ---
RN DC NOTES: PT STABLE FOR DC, VITALS WNL, ON RA WITH NO S/S OF SOB. . DC INSTRUCTIONS AND BELONGINGS DISCUSSED WITH PT, PT VERBALIZED UNDERSTANDING TO EVERYTHING DISCUSSED, SIGNED DOCUMENTS. IV ACCESSES AND ID BANDS REMOVED. [facility]. PT LEFT UNIT VIA GURNEY, TRANSPORTATION IS [facility].
== END 2022-08-18 17:00 | DRG 123 ==
LOC: ER 19:25 → MED 22:10
PROVIDERS: ADMIT Student in an Organized Health Care Education/Training Program; ATTEND Internal Medicine
PROC: 5A1D70Z Performance of Urinary Filtration, Intermittent, Less than 6 Hours Per Day (ICD-10-PCS; principal; 2022-08-17)
DX: H49.02 Third [oculomotor] nerve palsy, left eye (principal); N18.6 End stage renal disease; I12.0 Hypertensive chronic kidney disease with stage 5 chronic kidney disease or end stage renal disease; Z86.61 Personal history of infections of the central nervous system; D64.9 Anemia, unspecified; E87.5 Hyperkalemia; E11.22 Type 2 diabetes mellitus with diabetic chronic kidney disease; I48.91 Unspecified atrial fibrillation; Z95.0 Presence of cardiac pacemaker; Z79.4 Long term (current) use of insulin; Z79.82 Long term (current) use of aspirin; Z99.2 Dependence on renal dialysis; Z79.899 Other long term (current) drug therapy; Z20.822 Contact with and (suspected) exposure to COVID-19; Z86.73 Personal history of transient ischemic attack (TIA), and cerebral infarction without residual deficits
CPT/HCPCS: 36415; 70496-TC; 80048-TC; 82962-TC; 83735-TC; 84100-TC; 85025-TC; 87081-TC; 90935-TC; C9803; G0378; J1815; J7030; J7050; Q9967

== ENCOUNTER 2024-06-21 20:42 | Emergency (ER) | payer MEDICARE, OTHER ==
[~2024-06-21] VITALS: Ht 170.2 cm; Wt 83.9 kg
[2024-06-21 21:25] VITALS: BP 121/68; TEMP 98.1; O2SAT 98
== END 2024-06-22 02:01 | disposition home or self-care (01) ==
LOC: ER 21:04
DX: S01.81XD Laceration without foreign body of other part of head, subsequent encounter (principal); E11.9 Type 2 diabetes mellitus without complications; I10 Essential (primary) hypertension; I48.91 Unspecified atrial fibrillation; Z79.52 Long term (current) use of systemic steroids; Z79.82 Long term (current) use of aspirin; Z79.899 Other long term (current) drug therapy; Z88.7 Allergy status to serum and vaccine; W18.30XD Fall on same level, unspecified, subsequent encounter

== ENCOUNTER 2024-09-13 23:21 | Inpatient (IN) | payer MEDICARE, OTHER ==
[~2024-09-13] VITALS: Ht 170.2 cm; Wt 95.3 kg
[2024-09-14 00:40] LABS: BASOPHILS # (AUTO) 0.1 K/uL (0.0-0.2); BASOPHILS % (AUTO) 0.7 % (0.0-2.0); EOSINOPHILS # (AUTO) 0.1 K/uL (0.0-0.7); EOSINOPHILS % (AUTO) 1.6 % (0.0-6.0); HEMATOCRIT 40 % (39-51); HEMOGLOBIN 13.2 g/dL (13.5-17.5); LYMPHOCYTES % (AUTO) 11.8 % (20.0-44.0); MEAN CORPUSCULAR HEMOGLOBIN 33 PG (26.0-33.0); MEAN CORPUSCULAR HGB CONC 33 g/dl (31.0-36.0); MEAN CORPUSCULAR VOLUME 99 fL (80-96); MONOCYTES # (AUTO) 0.8 K/uL (0.1-1.30); MONOCYTES % (AUTO) 9.7 % (2.0-12.0); NEUTROPHILS # (AUTO) 6.2 K/uL (1.8-8.9); NEUTROPHILS % (AUTO) 76.2 % (43.0-81.0); PLATELET COUNT (AUTO) 216 K/uL (150-450); RED BLOOD CELL COUNT(AUTO) 4.01 MIL/uL (4.5-6.0); RED CELL DISTRIBUTION WIDTH 13.8 % (11.5-15.0); WHITE BLOOD COUNT (AUTO) 8.2 K/uL (4.3-11.0)
[2024-09-14 00:49] LABS: CALCIUM, SERUM 8.6 mg/dL (8.5-10.1); CARBON DIOXIDE 24 mmol/L (21-32); CHLORIDE 97 mmol/L (98-107); GLUCOSE 121 mg/dL (74-106); POTASSIUM 3.6 mmol/L (3.5-5.1); SODIUM SERUM 137 mmol/L (136-145); UREA NITROGEN, BLOOD 36 mg/dL (7-18)
[2024-09-14] MEDS: IV NS 0.9% 500 ML BAG IV ONE (00:49)
[2024-09-14 00:51] LABS: CREATININE 7.6 mg/dL (0.6-1.3)
[2024-09-14 00:56] LABS: ALANINE AMINOTRANSFERASE 8 U/L (12-78); ALBUMIN 3.7 g/dL (3.4-5.0); ALKALINE PHOSPHATASE 94 U/L (46-116); ASPARTATE AMINOTRANSFERASE 10 U/L (15-37); BILIRUBIN,DIRECT 0.2 mg/dL (0.0-0.2); BILIRUBIN,TOTAL 0.6 mg/dL (0.2-1.0); TOTAL PROTEIN, SERUM 8.1 g/dL (6.4-8.2)
[2024-09-14 00:57] LABS: LACTIC ACID 1.9 mmol/L (0.4-2.0)
[2024-09-14 01:00] LABS: MAGNESIUM 2.6 mg/dL (1.8-2.4); PHOSPHORUS 7.2 mg/dL (2.5-4.9)
[2024-09-14] MEDS ORDERED: ACETAMINOPHEN 325 MG TABLET PO PRN (03:30)
[2024-09-14] MEDS ORDERED: ONDANSETRON HCL/PF 4 MG/2 ML VIAL IVP PRN (03:30)
[2024-09-14] MEDS ORDERED: Z GUARD REMEDY 4 OZ OINT TP PRN (03:30)
[2024-09-14 05:00] VITALS: BP 100/55; TEMP 97.9; O2SAT 99
[2024-09-14 06:31] LABS: BASOPHILS # (AUTO) 0.1 K/uL (0.0-0.2); BASOPHILS % (AUTO) 0.9 % (0.0-2.0); EOSINOPHILS # (AUTO) 0.1 K/uL (0.0-0.7); HEMATOCRIT 41 % (39-51); HEMOGLOBIN 13.7 g/dL (13.5-17.5); LYMPHOCYTES % (AUTO) 15.1 % (20.0-44.0); MEAN CORPUSCULAR HEMOGLOBIN 33 PG (26.0-33.0); MEAN CORPUSCULAR HGB CONC 33 g/dl (31.0-36.0); MEAN CORPUSCULAR VOLUME 99 fL (80-96); MONOCYTES # (AUTO) 0.6 K/uL (0.1-1.30); MONOCYTES % (AUTO) 9.3 % (2.0-12.0); NEUTROPHILS % (AUTO) 72.7 % (43.0-81.0); PLATELET COUNT (AUTO) 220 K/uL (150-450); RED BLOOD CELL COUNT(AUTO) 4.19 MIL/uL (4.5-6.0); RED CELL DISTRIBUTION WIDTH 13.9 % (11.5-15.0); WHITE BLOOD COUNT (AUTO) 6.9 K/uL (4.3-11.0)
[2024-09-14 06:41] LABS: CALCIUM, SERUM 8.3 mg/dL (8.5-10.1); MAGNESIUM 2.6 mg/dL (1.8-2.4); POTASSIUM 3.7 mmol/L (3.5-5.1)
[2024-09-14 07:05] LABS: THYROID STIMULATING HORMONE 2.15 uIU/mL (0.358-3.74)
[2024-09-14 07:45] LABS: CREATININE 8.3 mg/dL (0.6-1.3)
[2024-09-14 08:00] VITALS: BP 97/53; TEMP 97.5; O2SAT 96
[2024-09-14] MEDS: PANTOPRAZOLE 40 MG TABLET.DR PO SCH (08:24)
[2024-09-14] MEDS: LEVOTHYROXINE SODIUM 75 MCG TABLET PO SCH (10:39)
[2024-09-14] MEDS: ASPIRIN 81 MG TAB.CHEW PO SCH (10:39)
[2024-09-14] MEDS: FENOFIBRATE NANOCRYS (145 MG) 145 MG TABLET PO SCH (10:39)
[2024-09-14] MEDS: ATORVASTATIN 40 MG TABLET PO SCH (10:40)
[2024-09-14 12:00] VITALS: BP 95/66; TEMP 97.3; O2SAT 96
[2024-09-14] MEDS ORDERED: ALBUMIN 25% 25 GM in PREMIX 1 EA IV PRN (12:30)
[2024-09-14] MEDS ORDERED: HEPARIN SODIUM, PORCINE 5000 UNITS/1 ML VIAL IVF PRN (14:30)
[2024-09-14] MEDS: HEPARIN-LOCK FLUSH PORCINE PF 100 UNITS/1 ML (10 ML)DISP.SYRIN IVF PRN (15:38)
[2024-09-14 16:00] VITALS: BP 113/60; TEMP 97.3; O2SAT 99
[2024-09-14 20:00] VITALS: BP 91/51; TEMP 97.5; O2SAT 99
[2024-09-15] VITALS (7 sets, daily range): BP systolic 76–110; BP diastolic 45–60; TEMP 97.5–98.2; O2SAT 96–100
[2024-09-15] MEDS: MIDODRINE HCL (5MG) 5 MG TABLET PO SCH (04:36)
[2024-09-15] MEDS: ALBUMIN 25% 12.5 GM/50 ML BOTTLE IV ONE (04:54)
[2024-09-15] MEDS ORDERED: ALBUMIN 5% 250 ML IV ONE (04:54)
[2024-09-15 06:47] LABS: BASOPHILS # (AUTO) 0.1 K/uL (0.0-0.2); BASOPHILS % (AUTO) 0.7 % (0.0-2.0); EOSINOPHILS # (AUTO) 0.3 K/uL (0.0-0.7); EOSINOPHILS % (AUTO) 3.8 % (0.0-6.0); HEMATOCRIT 34 % (39-51); HEMOGLOBIN 11.7 g/dL (13.5-17.5); LYMPHOCYTES # (AUTO) 0.7 K/uL (0.8-4.8); LYMPHOCYTES % (AUTO) 10.2 % (20.0-44.0); MEAN CORPUSCULAR HEMOGLOBIN 34 PG (26.0-33.0); MEAN CORPUSCULAR HGB CONC 34 g/dl (31.0-36.0); MEAN CORPUSCULAR VOLUME 98 fL (80-96); MONOCYTES # (AUTO) 0.7 K/uL (0.1-1.30); MONOCYTES % (AUTO) 9.5 % (2.0-12.0); NEUTROPHILS # (AUTO) 5.3 K/uL (1.8-8.9); NEUTROPHILS % (AUTO) 75.8 % (43.0-81.0); PLATELET COUNT (AUTO) 166 K/uL (150-450); RED CELL DISTRIBUTION WIDTH 13.8 % (11.5-15.0)
[2024-09-15 07:04] LABS: MAGNESIUM 2.4 mg/dL (1.8-2.4); PHOSPHORUS 6.2 mg/dL (2.5-4.9); POTASSIUM 3.6 mmol/L (3.5-5.1)
[2024-09-15 07:10] LABS: CREATININE 7.6 mg/dL (0.6-1.3)
[2024-09-15] MEDS: MIDODRINE HCL (5MG) 5 MG TABLET PO PRN (09:25)
[2024-09-15] MEDS ORDERED: APIX2.5T PO (12:04)
[2024-09-15] MEDS ORDERED: MIDO5TAB4 PO (12:04)
[2024-09-16] VITALS: BP 90/50; TEMP 98.1; O2SAT 100
[2024-09-16 04:00] VITALS: BP 95/71; TEMP 98.1; O2SAT 99
[2024-09-16 07:19] LABS: BASOPHILS % (AUTO) 0.7 % (0.0-2.0); EOSINOPHILS # (AUTO) 0.4 K/uL (0.0-0.7); EOSINOPHILS % (AUTO) 6.6 % (0.0-6.0); HEMATOCRIT 34 % (39-51); HEMOGLOBIN 11.3 g/dL (13.5-17.5); LYMPHOCYTES % (AUTO) 15.3 % (20.0-44.0); MEAN CORPUSCULAR HEMOGLOBIN 33 PG (26.0-33.0); MEAN CORPUSCULAR HGB CONC 33 g/dl (31.0-36.0); MEAN CORPUSCULAR VOLUME 98 fL (80-96); MONOCYTES # (AUTO) 0.8 K/uL (0.1-1.30); MONOCYTES % (AUTO) 11.9 % (2.0-12.0); NEUTROPHILS # (AUTO) 4.1 K/uL (1.8-8.9); NEUTROPHILS % (AUTO) 65.5 % (43.0-81.0); PLATELET COUNT (AUTO) 206 K/uL (150-450); RED BLOOD CELL COUNT(AUTO) 3.46 MIL/uL (4.5-6.0); WHITE BLOOD COUNT (AUTO) 6.3 K/uL (4.3-11.0)
[2024-09-16 08:00] VITALS: BP 90/50; TEMP 98.1; O2SAT 100
[2024-09-16] MEDS: MIDODRINE HCL (5MG) 5 MG TABLET PO SCH (09:16)
[2024-09-16 11:16] LABS: CALCIUM, SERUM 7.7 mg/dL (8.5-10.1); CREATININE 9.4 mg/dL (0.6-1.3); MAGNESIUM 2.5 mg/dL (1.8-2.4); PHOSPHORUS 7.3 mg/dL (2.5-4.9); POTASSIUM 3.8 mmol/L (3.5-5.1)
[2024-09-16 12:00] VITALS: BP 92/55; TEMP 98.1; O2SAT 100
[2024-09-16 16:00] VITALS: BP 99/56; TEMP 97.5; O2SAT 100
[2024-09-16 20:00] VITALS: BP 130/68; TEMP 97.3; O2SAT 100
[2024-09-17] VITALS (7 sets, daily range): BP systolic 81–120; BP diastolic 50–70; TEMP 97.5–97.9; O2SAT 98–100
[2024-09-17 07:17] LABS: BASOPHILS # (AUTO) 0.1 K/uL (0.0-0.2); BASOPHILS % (AUTO) 0.9 % (0.0-2.0); EOSINOPHILS # (AUTO) 0.4 K/uL (0.0-0.7); EOSINOPHILS % (AUTO) 5.7 % (0.0-6.0); HEMATOCRIT 35 % (39-51); HEMOGLOBIN 11.7 g/dL (13.5-17.5); LYMPHOCYTES # (AUTO) 1.2 K/uL (0.8-4.8); LYMPHOCYTES % (AUTO) 17.7 % (20.0-44.0); MEAN CORPUSCULAR HEMOGLOBIN 33 PG (26.0-33.0); MEAN CORPUSCULAR HGB CONC 33 g/dl (31.0-36.0); MEAN CORPUSCULAR VOLUME 98 fL (80-96); MONOCYTES # (AUTO) 0.6 K/uL (0.1-1.30); MONOCYTES % (AUTO) 8.8 % (2.0-12.0); NEUTROPHILS # (AUTO) 4.5 K/uL (1.8-8.9); NEUTROPHILS % (AUTO) 66.9 % (43.0-81.0); PLATELET COUNT (AUTO) 208 K/uL (150-450); RED CELL DISTRIBUTION WIDTH 13.6 % (11.5-15.0); WHITE BLOOD COUNT (AUTO) 6.8 K/uL (4.3-11.0)
[2024-09-17 07:27] LABS: CALCIUM, SERUM 7.1 mg/dL (8.5-10.1); MAGNESIUM 2.5 mg/dL (1.8-2.4); POTASSIUM 4.2 mmol/L (3.5-5.1)
[2024-09-17 08:02] LABS: CREATININE 11.4 mg/dL (0.6-1.3)
[2024-09-17 08:03] LABS: PHOSPHORUS 8.3 mg/dL (2.5-4.9)
[2024-09-17] MEDS ORDERED: MIDO5TAB4 PO (19:00)
[2024-09-17] MEDS ORDERED: FLUD0.1T PO (19:00)
== END 2024-09-17 19:50 | disposition home health service (06) | DRG 73 ==
LOC: ER 23:32 → TELE1 09-14 03:39
PROVIDERS: ADMIT Nurse Practitioner Family; ATTEND Nurse Practitioner Acute Care
PROC: 5A1D70Z Performance of Urinary Filtration, Intermittent, Less than 6 Hours Per Day (ICD-10-PCS; principal; 2024-09-14)
DX: G90.89 Other disorders of autonomic nervous system (principal); I50.31 Acute diastolic (congestive) heart failure; N18.6 End stage renal disease; I13.2 Hypertensive heart and chronic kidney disease with heart failure and with stage 5 chronic kidney disease, or end stage renal disease; J90 Pleural effusion, not elsewhere classified; I95.9 Hypotension, unspecified; E11.22 Type 2 diabetes mellitus with diabetic chronic kidney disease; D64.9 Anemia, unspecified; E03.9 Hypothyroidism, unspecified; E66.9 Obesity, unspecified; E78.5 Hyperlipidemia, unspecified; R62.7 Adult failure to thrive; Z79.4 Long term (current) use of insulin; Z79.82 Long term (current) use of aspirin; Z99.2 Dependence on renal dialysis; Z68.32 Body mass index [BMI] 32.0-32.9, adult; Z95.0 Presence of cardiac pacemaker; E83.9 Disorder of mineral metabolism, unspecified; K43.9 Ventral hernia without obstruction or gangrene
CPT/HCPCS: 36415; 71045-TC; 80048-TC; 80076-TC; 83605-TC; 83735-TC; 83880; 84100-TC; 84443-TC; 84484-TC; 85025-TC; 86706; 87040-TC; 87340; 90935-TC; 93307-TC; 97110-TC; 97116-TC; 97530-TC; A4216; A4223; G0378; J1642; J1644; J7030; J7040; J7050; P9045; P9047

== ENCOUNTER 2024-12-10 23:20 | Inpatient (IN) | payer MEDICARE, OTHER ==
[~2024-12-10] VITALS: Ht 170.2 cm; Wt 88.0 kg
[~2024-12-10 23:20] MED LIST changes: -ALBU18HF2 IH; +APIX2.5T PO; +FLUD0.1T PO; +MIDO5TAB4 PO; -OFLO5DRO6 LEFTEYE; -PRED20TA PO
[2024-12-11] VITALS (8 sets, daily range): BP systolic 61–103; BP diastolic 42–88; TEMP 97.3–98.1; O2SAT 96–99
[2024-12-11 00:31] LABS: PLATELET COUNT (AUTO) 228 K/uL (150-450); RED BLOOD CELL COUNT(AUTO) 4.09 MIL/uL (4.5-6.0); RED CELL DISTRIBUTION WIDTH 14.1 % (11.5-15.0); WHITE BLOOD COUNT (AUTO) 6.7 K/uL (4.3-11.0)
[2024-12-11] MEDS ORDERED: MORPHINE SULFATE INJ 4 MG/ML DISP.SYRIN ONE (00:34)
[2024-12-11] MEDS ORDERED: ONDANSETRON HCL/PF 4 MG/2 ML VIAL ONE (00:34)
[2024-12-11 00:42] LABS: ASPARTATE AMINOTRANSFERASE 10.0 U/L (15-37); CALCIUM, SERUM 8.6 mg/dL (8.5-10.1); CREATININE 5.2 mg/dL (0.6-1.3); SODIUM SERUM 139.0 mmol/L (136-145); TOTAL PROTEIN, SERUM 8.3 g/dL (6.4-8.2); UREA NITROGEN, BLOOD 9.0 mg/dL (7-18)
[2024-12-11] MEDS: MORPHINE SULFATE INJ 2 MG/ML DISP.SYRIN IV ONE (00:46)
[2024-12-11] MEDS: ONDANSETRON HCL/PF 4 MG/2 ML VIAL IVP ONE (00:46)
[2024-12-11 00:53] LABS: INR 1.08 (0.91-1.10)
[2024-12-11] MEDS ORDERED: Z GUARD REMEDY 4 OZ OINT TP PRN (02:00)
[2024-12-11] MEDS ORDERED: MAG HYDROX/AL HYDROX/SIMETH 30 ML UDC PO PRN (02:00)
[2024-12-11] MEDS ORDERED: DEXTROSE 50%-WATER 50 ML DISP.SYRIN IV PRN (02:00)
[2024-12-11] MEDS ORDERED: MAGNESIUM HYDROXIDE 30 ML UDC PO PRN (02:00)
[2024-12-11] MEDS ORDERED: ONDANSETRON HCL/PF 4 MG/2 ML VIAL IVP PRN (02:00)
[2024-12-11] MEDS: BLOOD SUGAR DIAGNOSTIC 1 EACH STRIP IN SCH (06:32)
[2024-12-11] MEDS: INSULIN REGULAR, HUMAN 100 UNIT/ML 3 ML VIAL SQ PRN (06:32)
[2024-12-11] MEDS: PANTOPRAZOLE 40 MG TABLET.DR PO SCH (08:09)
[2024-12-11] MEDS ORDERED: FLUD0.1T PO (08:24)
[2024-12-11] MEDS ORDERED: FURO-144 PO (08:24)
[2024-12-11] MEDS ORDERED: MIDO5TAB4 PO (08:24)
[2024-12-11] MEDS ORDERED: CINA30TA6 PO (08:24)
[2024-12-11] MEDS ORDERED: CHOL500052 PO (08:24)
[2024-12-11] MEDS: CINACALCET HCL 30 MG TABLET PO SCH (13:00)
[2024-12-11] MEDS: LEVOTHYROXINE SODIUM 75 MCG TABLET PO SCH (13:00)
[2024-12-11] MEDS: FLUDROCORTISONE 0.1 MG TABLET PO SCH (13:01)
[2024-12-11] MEDS: MIDODRINE HCL (5MG) 5 MG TABLET PO PRN (13:01)
[2024-12-11] MEDS: FUROSEMIDE 40 MG TABLET PO SCH (17:00)
[2024-12-11] MEDS: THERAHONEY GEL 1.5 OZ TUBE TP SCH (21:17)
[2024-12-12] VITALS: BP 100/52; TEMP 98.2; O2SAT 97
[2024-12-12 04:00] VITALS: BP 94/53; TEMP 98.4; O2SAT 96
[2024-12-12 06:24] VITALS: BP_SYST 100; BP_SYST 78; BP_SYST 82; BP_DIAS 51; BP_DIAS 53; BP_DIAS 56
[2024-12-12 06:32] LABS: PLATELET COUNT (AUTO) 236 K/uL (150-450); RED BLOOD CELL COUNT(AUTO) 3.81 MIL/uL (4.5-6.0); RED CELL DISTRIBUTION WIDTH 14.3 % (11.5-15.0); WHITE BLOOD COUNT (AUTO) 6.2 K/uL (4.3-11.0)
[2024-12-12 06:40] LABS: CALCIUM, SERUM 7.4 mg/dL (8.5-10.1); PHOSPHORUS 4.5 mg/dL (2.5-4.9); SODIUM SERUM 137.0 mmol/L (136-145); UREA NITROGEN, BLOOD 21.0 mg/dL (7-18)
[2024-12-12 07:30] VITALS: BP 106/56; TEMP 97.7; O2SAT 97
[2024-12-12 07:52] LABS: CREATININE 7.5 mg/dL (0.6-1.3)
[2024-12-12] MEDS: CHOLECALCIFEROL (VITAMIN D 3) 400 UNIT TABLET PO SCH (08:10)
[2024-12-12] MEDS: ACETAMINOPHEN 325 MG TABLET PO PRN (08:39)
[2024-12-12 08:48] VITALS: BP_SYST 106; BP_SYST 83; BP_SYST 93; BP_DIAS 54; BP_DIAS 56; BP_DIAS 71
[2024-12-12] MEDS ORDERED: IOHEXOL-350 100 ML VIAL IV ONE (13:58)
[2024-12-12] MEDS ORDERED: IV NS 0.9% 250 ML IV ONE (13:59)
[2024-12-12 16:00] VITALS: BP 106/61; TEMP 97.9; O2SAT 99
[2024-12-12] MEDS: HYDROCODONE/APAP 5/325MG TABLET PO PRN (22:44)
[2024-12-13 05:00] VITALS: BP 98/44; TEMP 98.1; O2SAT 98
[2024-12-13 08:00] VITALS: BP 97/64; TEMP 97.5; O2SAT 99
[2024-12-13 12:00] VITALS: BP 94/64; TEMP 97.9; O2SAT 99
[2024-12-13] MEDS: SUMATRIPTAN SUCCINATE 25 MG TABLET PO ONE (12:06)
[2024-12-13] MEDS: VALPROATE 250 MG in IV D5W 100 ML IV ONE (12:06)
[2024-12-13 16:00] VITALS: BP 95/66; TEMP 97.9; O2SAT 100
[2024-12-13 20:00] VITALS: BP_SYST 87; BP_DIAS 55; BP_DIAS 66; TEMP 97.5; O2SAT 100
[2024-12-13] MEDS: NORTRIPTYLINE HCL 25 MG CAPSULE PO SCH (22:01)
[2024-12-14 05:45] VITALS: BP 92/55; TEMP 97.5; O2SAT 100
[2024-12-14 08:00] VITALS: BP 126/55; TEMP 98.3; O2SAT 100
[2024-12-14] MEDS: ALBUMIN 25% 25 GM in PREMIX 1 EA IV PRN (13:06)
[2024-12-14 16:00] VITALS: BP 106/54; TEMP 97.5; O2SAT 99
[2024-12-14 20:00] VITALS: BP 115/55; TEMP 97.5; O2SAT 100
[2024-12-14 20:17] VITALS: BP 115/55; TEMP 97.5; O2SAT 100
[2024-12-15 08:00] VITALS: BP 92/61; TEMP 98.5; O2SAT 100
[2024-12-15] MEDS ORDERED: NORT25CA PO (09:31)
[2024-12-15] MEDS ORDERED: SUMA50TA PO (09:31)
[2024-12-15 16:00] VITALS: BP 101/70; TEMP 97.6; O2SAT 98
[2024-12-15 18:39] VITALS: BP 93/54
== END 2024-12-15 18:50 | disposition home or self-care (01) | DRG 102 ==
LOC: ER 23:25 → TELE 12-11 02:31 → MED 12-13 22:28
PROVIDERS: ADMIT Nurse Practitioner Acute Care; ATTEND Nurse Practitioner Acute Care
PROC: 5A1D70Z Performance of Urinary Filtration, Intermittent, Less than 6 Hours Per Day (ICD-10-PCS; principal; 2024-12-12)
DX: G43.909 Migraine, unspecified, not intractable, without status migrainosus (principal); N18.6 End stage renal disease; I13.2 Hypertensive heart and chronic kidney disease with heart failure and with stage 5 chronic kidney disease, or end stage renal disease; G44.89 Other headache syndrome; E11.22 Type 2 diabetes mellitus with diabetic chronic kidney disease; E11.319 Type 2 diabetes mellitus with unspecified diabetic retinopathy without macular edema; E11.621 Type 2 diabetes mellitus with foot ulcer; Z99.2 Dependence on renal dialysis; E11.40 Type 2 diabetes mellitus with diabetic neuropathy, unspecified; E11.51 Type 2 diabetes mellitus with diabetic peripheral angiopathy without gangrene; E78.5 Hyperlipidemia, unspecified; I50.9 Heart failure, unspecified; Z86.79 Personal history of other diseases of the circulatory system; Z79.82 Long term (current) use of aspirin; Z79.4 Long term (current) use of insulin; Z79.01 Long term (current) use of anticoagulants; Z79.899 Other long term (current) drug therapy; Z95.0 Presence of cardiac pacemaker; K46.9 Unspecified abdominal hernia without obstruction or gangrene; I48.91 Unspecified atrial fibrillation; G93.89 Other specified disorders of brain; Z86.73 Personal history of transient ischemic attack (TIA), and cerebral infarction without residual deficits; H54.7 Unspecified visual loss; I95.89 Other hypotension; E03.9 Hypothyroidism, unspecified; E66.9 Obesity, unspecified; Z68.30 Body mass index [BMI] 30.0-30.9, adult; Z79.890 Hormone replacement therapy; K74.60 Unspecified cirrhosis of liver; F10.91 Alcohol use, unspecified, in remission; M89.8X9 Other specified disorders of bone, unspecified site; Z86.19 Personal history of other infectious and parasitic diseases; L97.522 Non-pressure chronic ulcer of other part of left foot with fat layer exposed
CPT/HCPCS: 36415; 70450-TC; 70496-TC; 70498-TC; 71045-TC; 73630-TC; 80048-TC; 80076-TC; 82962-TC; 83735-TC; 84100-TC; 84134-TC; 85025-TC; 85730-TC; 90935-TC; 97110-TC; 97112-TC; 97116-TC; 97530-TC; A4216; A4223; G0378; J1815; J2270; J2405; J3490; J7030; J7050; J7060; P9047; Q9967

== ENCOUNTER 2025-03-19 10:57 | Outpatient (CLI) | payer MEDICARE, OTHER ==
[~2025-03-19 10:57] MED LIST changes: -APIX2.5T PO; -ASPI-1169 PO; -ATOR40TA PO; -CALC500T52 PO; -CALC667C6 PO; -CARV12.52 PO; -CHOL10002 PO; +CHOL500052 PO; +CINA30TA6 PO; -FENO145T21 PO; +FURO-144 PO; -FURO40TA5 PO; -ICOS1CAP PO; -INSU100V7 SQ; -INSU100V9 SQ; -MAGN400T26 PO; -MULT-981 PO; -NITR0.4T48 SL; +NORT25CA PO; -NUT.237L67 PO; -SPIR100T5 PO; +SUMA50TA PO; -ZINC50TA69 PO
[2025-03-19] MEDS ORDERED: COLLAGENASE 5 GM TUBE UD TP ONE (11:13)
== END 2025-03-19 23:59 | disposition home or self-care (01) ==
LOC: WOU 10:57
PROVIDERS: ATTEND Surgery Vascular Surgery
DX: E11.621 Type 2 diabetes mellitus with foot ulcer (principal); L97.522 Non-pressure chronic ulcer of other part of left foot with fat layer exposed; E11.40 Type 2 diabetes mellitus with diabetic neuropathy, unspecified; E11.51 Type 2 diabetes mellitus with diabetic peripheral angiopathy without gangrene; E11.22 Type 2 diabetes mellitus with diabetic chronic kidney disease; I12.0 Hypertensive chronic kidney disease with stage 5 chronic kidney disease or end stage renal disease; N18.6 End stage renal disease; Z99.2 Dependence on renal dialysis
CPT/HCPCS: G0463

== ENCOUNTER 2025-04-05 04:18 | Emergency (ER) | payer MEDICARE, OTHER ==
[~2025-04-05] VITALS: Ht 167.6 cm; Wt 93.0 kg
[2025-04-05] MEDS ORDERED: SUMATRIPTAN SUCCINATE 6 MG/0.5 ML VIAL SQ ONE (04:39)
[2025-04-05] MEDS ORDERED: METOCLOPRAMIDE HCL 10 MG/2 ML VIAL ONE (04:40)
[2025-04-05 04:57] LABS: PLATELET COUNT (AUTO) 231 K/uL (150-450); RED BLOOD CELL COUNT(AUTO) 3.41 MIL/uL (4.5-6.0); RED CELL DISTRIBUTION WIDTH 14.4 % (11.5-15.0); WHITE BLOOD COUNT (AUTO) 5.0 K/uL (4.3-11.0)
[2025-04-05 05:04] LABS: CALCIUM, SERUM 7.9 mg/dL (8.5-10.1); SODIUM SERUM 139.0 mmol/L (136-145); UREA NITROGEN, BLOOD 40.0 mg/dL (7-18)
[2025-04-05 05:05] LABS: CREATININE 9.2 mg/dL (0.6-1.3)
[2025-04-05] MEDS: IV NS 0.9% 1,000 ML BAG IV ONE (05:07)
[2025-04-05] MEDS: SUMATRIPTAN SUCCINATE 6 MG/0.5 ML VIAL SQ ONE (05:07)
[2025-04-05] MEDS: METOCLOPRAMIDE HCL 10 MG/2 ML VIAL IV ONE (05:07)
[2025-04-05 06:41] VITALS: BP 113/64; TEMP 98.2; O2SAT 98
== END 2025-04-05 06:42 | disposition home or self-care (01) ==
LOC: ER 04:25
DX: R51.9 Headache, unspecified (principal); E11.22 Type 2 diabetes mellitus with diabetic chronic kidney disease; E11.40 Type 2 diabetes mellitus with diabetic neuropathy, unspecified; I51.9 Heart disease, unspecified; N18.6 End stage renal disease; Z79.899 Other long term (current) drug therapy; Z95.0 Presence of cardiac pacemaker; Z99.2 Dependence on renal dialysis
CPT/HCPCS: 99284; 96374; 85025; 80048; 36415; 96372; J3030; J2765